=== PATIENT | female | born 1950 | race Caucasian/White ===

== ENCOUNTER 2018-07-31 13:49 | Inpatient (IN) | payer OTHER ==
[~2018-07-31] VITALS: Ht 172.7 cm; Wt 93.1 kg
[~2018-07-31 13:49] MED LIST: BUPROPION HCL100 MG PO; BUPROPION HCL75 MG PO; CALCIUM600 MG PO; CEFDINIR300 MG PO; CLONAZEPAM0.5 MG PO; CLONAZEPAM1 MG PO; HYDROCODON-ACE1 EA12 PO; LAMOTRIGINE100 MG PO; LAMOTRIGINE200 MG PO; LEVOTHYROXINE50 MCG PO; OMEPRAZOLE20 M1 PO; OSTERA TABLET1 EACH; PREDNISONE20 MG PO; RISPERIDONE1 MG PO; VENLAFAXINE PO; VIT D PO; [UNRECOGNIZED DRUG - OTHER] PO; vit d3
[2018-07-31] MEDS ORDERED: SODIUM CHLORIDE 0.9% 1000ML 1,000 ML IV STA (14:28)
[2018-07-31] MEDS ORDERED: CEFTRIAXONE SOD 1 GM VIAL IV SCH ×2 (14:30→16:15)
[2018-07-31] MEDS ORDERED: CEFTRIAXONE SOD 1 GM/NS 50 ML 50 ML IV SCH ×2 (15:00→17:00)
[2018-07-31 15:15] LABS: BASOPHILS # (AUTO) 0.1 (0.0-0.1); BASOPHILS % 0.5 % (0.0-1.0); EOSINOPHILS # (AUTO) 0.2 (0.0-0.4); EOSINOPHILS % 1.8 % (0.0-6.0); HEMATOCRIT 38.7 % (34.2-44.1); HEMOGLOBIN 12.2 g/dL (12.0-16.0); LYMPHOCYTES # (AUTO) 2.1 (1.0-3.2); LYMPHOCYTES % 16.1 % (18.0-39.1); MEAN CORPUSCULAR HEMOGLOBIN 30.7 pg (28-32); MEAN CORPUSCULAR HGB CONC 31.5 g/dL (31-35); MEAN CORPUSCULAR VOLUME 97.5 fL (81-99); MONOCYTES # (AUTO) 0.8 (0.2-0.8); MONOCYTES % 5.9 % (4.4-11.3); NEUTROPHILS # (AUTO) 9.6 (2.1-6.9); PLATELET COUNT 312 x10e3/uL (140-360); RED BLOOD COUNT 3.97 x10e6/uL (3.6-5.1); RED CELL DISTRIBUTION WIDTH 12.5 % (11.7-14.4)
[2018-07-31 15:26] LABS: INR 0.85; PROTHROMBIN TIME 12.4 seconds (11.9-14.5)
[2018-07-31 15:27] LABS: PARTIAL THROMBOPLASTIN TIME 31.5 seconds (23.8-35.5)
[2018-07-31] MEDS ORDERED: AZITHROMYCIN 500MG/NS 250 ML 250 ML IV ONE (15:30)
[2018-07-31 15:36] LABS: ALANINE AMINOTRANSFERASE 12 IU/L (0-55); ALBUMIN 3.8 g/dL (3.5-5.0); ALKALINE PHOSPHATASE 78 IU/L (40-150); BLOOD UREA NITROGEN 10 mg/dL (7-26); BUN/CREATININE RATIO 13 (6-25); CALCIUM 9.5 mg/dL (8.4-10.2); CARBON DIOXIDE 26 mmol/L (22-29); CHLORIDE 99 mmol/L (98-107); CREATINE KINASE 27 IU/L (29-168); CREATININE, SERUM 0.76 mg/dL (0.57-1.11); EST GLOMERULAR FILTRATION RATE > 60 ML/MIN (60-); GLUCOSE 93 mg/dL (74-118); SODIUM 138 mmol/L (136-145)
[2018-07-31] MEDS: SODIUM CHLORIDE 0.9% 1000ML 1,000 ML IV SCH ×2 (16:01→22:52)
[2018-07-31] MEDS ORDERED: AZITHROMYCIN 500MG/SOD CHL 0.9% 250ML BAG IV SCH (16:15)
[2018-07-31] MEDS ORDERED: ALBUTEROL/IPRATROPIUM 3 ML NEB ONE (16:23)
--- NOTE | 2018-07-31 16:27 | Diagnostic Imaging Report ---
EXAMINATION: CHEST 2 VIEWS INDICATION: ^pneumonia ^[id number] ^1505 COMPARISON: None FINDINGS: PA and lateral views TUBES and LINES: None. LUNGS: Lungs are well inflated. Right lower lung field hazy opacification with mild silhouetting of the right hemidiaphragm. PLEURA: No pleural effusion or pneumothorax. HEART AND MEDIASTINUM: The cardiomediastinal silhouette is unremarkable. BONES AND SOFT TISSUES: No acute osseous lesion. Soft tissues are unremarkable. UPPER ABDOMEN: No free air under the diaphragm. IMPRESSION: Right lower lung field hazy opacification with mild silhouetting of the right hemidiaphragm, concerning for developing pneumonia in the appropriate clinical setting. Signed by: Dr. Russ Khan MD on 07/31/2018 4:24 PM
--- OUTSIDE RECORDS SUMMARY | 2018-07-31 16:29 | XMS REPORT ---
Author Author [facility] Address Unknown Phone Unavailable Care Team Providers Care Professional Engineer Name Role Phone GEOFF AC Unavailable Unavailable Problems This patient has no known problems. Allergies, Adverse Reactions, Alerts This patient has no known allergies or adverse reactions. Medications This patient has no known medications. Results Test Description Test Time Test Comments Text Results Atomic Results Result Comments CHEST 2 VIEWS 2018-07-31 16:22:00 [place] [address] Patient Name: MILIND CASTILLO MR #: [id number] : 1950 Age/Sex: 68/F Req #: [id number] [facility] Physician: GEOFF AC MD Ordered by: JODIE AZAR MD Report #: [id number] Location: [facility] Room/Bed: [place] [address] Procedure: [id number] DX/CHEST 2 VIEWS Exam Date: 07/31/18 Exam Time: 1505 REPORT STATUS: Signed EXAMINATION: CHEST 2 VIEWS INDICATION: pneumonia [id number] COMPARISON: None FINDINGS: PA and lateral views TUBES and LINES: None. LUNGS: Lungs are well inflated. Right lower lung field hazy opacification with mild silhouetting of the right hemidiaphragm. PLEURA: No pleural effusion or pneumothorax. HEART AND MEDIASTINUM: The cardiomediastinal silhouette is unremarkable. BONES AND SOFT TISSUES: No acute osseous lesion. Soft tissues are unremarkable. UPPER ABDOMEN: No free air under the diaphragm. IMPRESSION: Right lower lung field hazy opacification with mild silhouetting of the right hemidiaphragm, concerning for developing pneumonia in the appropriate clinical setting. Signed by: Dr. Russ Burrell MD on 07/31/2018 4:24 PM Dictated By: RUSS BURRELL MD 23 Transcribed By: JENNIFER on 07/31/181623 COPY TO: JODIE AZAR MD
[2018-07-31] MEDS ORDERED: CYMBALTA30 MG PO (17:00)
[2018-07-31] MEDS ORDERED: NORCO 7.5-3251 EACH PO (17:00)
[2018-07-31] MEDS ORDERED: RISPERDAL1 MG PO (17:00)
[2018-07-31] MEDS ORDERED: ALBUTEROL0.63 MG/3 IH (17:00)
[2018-07-31] MEDS ORDERED: OMEPRAZOLE40 MG PO (17:00)
[2018-07-31] MEDS ORDERED: METHYLPHENIDATE5 MG PO (17:00)
[2018-07-31] MEDS ORDERED: GABAPENTIN300 MG PO (17:00)
[2018-07-31] MEDS ORDERED: QUETIAPINE FUMA25 MG PEG (17:00)
[2018-07-31] MEDS ORDERED: ALBUTEROL/IPRATROPIUM 3 ML NEB NEB ONE (17:00)
[2018-07-31] MEDS ORDERED: SERTRALINE HCL50 MG PO (17:00)
[2018-07-31] MEDS ORDERED: METFORMIN HCL500 MG PO (17:00)
[2018-07-31 17:10] VITALS: BP 113/57
[2018-07-31 17:20] VITALS: BP 113/57
--- NOTE | 2018-07-31 17:20 | NUR ---
INTRODUCED MYSELF TO PT AT THIS TIME. PT IS AA0X3. VITAL SIGNS TAKEN AND ARE WITHIN N/L. PT FAMILY IS AT BEDSIDE. PT IS ON 2.5 L NC AT THIS TIME. IV TO THE RIGHT AC 20G WITH NS AT 125CC.HR. INSTRUCTED FAMILY AND PT THAT NURSE LÓPEZ WOULD IN SHORTLY . PT VERBALIZED UNDERSTANDING . SIDE RAILSX2, BED WHEELS LOCKED, CALL LIGHT IS WITHIN EASY REACH, INSTRUCTED TO CALL FOR ASSISTANCE IF NEEDED
[2018-07-31] MEDS ORDERED: COMBIVENT RESPIM4 GM IH (18:06)
[2018-07-31] MEDS ORDERED: MIRALAX17 GM PO (18:06)
--- NOTE | 2018-07-31 18:45 | NUR ---
1530 Dose of zithromax not given prior to patient arriving to unit from the ER. Will administer the 1700 dose only.
[2018-07-31] MEDS: AZITHROMYCIN 500MG/NS 250 ML 250 ML IV SCH (18:50)
[2018-07-31] MEDS: NICOTINE 21 MG/EA PATCH TOP SCH (18:50)
[2018-07-31] MEDS ORDERED: INFLUENZA VIRUS VAC SPLIT INJ 0.5 ML SYR IM ONE (19:00)
[2018-07-31] MEDS: ALBUTEROL SULF 0.083% NEB SOLN 3 ML NEB NEB SCH (19:16)
[2018-07-31] MEDS: IPRATROPIUM BROMIDE 0.02% 2.5 ML NEB NEB SCH (19:16)
[2018-07-31 20:00] VITALS: BP 113/59
[2018-07-31] MEDS ORDERED: IPRATROPIUM/ALBUTEROL SULFATE 4 GM INH INH PRN (21:45)
[2018-07-31] MEDS ORDERED: HYDROCODONE/APAP 7.5MG-325MG 1 EA TAB PO SCH (22:00)
[2018-07-31] MEDS ORDERED: FAMOTIDINE 20 MG/2 ML VIAL IV SCH (22:00)
[2018-07-31] MEDS: METHYLPREDNISOLONE SOD SUCC 40 MG/ML VIAL IV SCH (22:59)
[2018-07-31] MEDS: RISPERIDONE 1 MG TAB PO SCH (22:59)
[2018-07-31] MEDS: POLYETHYLENE GLYCOL 3350 17 GM PACK PO SCH (22:59)
[2018-07-31] MEDS: FAMOTIDINE IV SCH (22:59)
[2018-07-31] MEDS: GABAPENTIN 300 MG CAP PO SCH (22:59)
[2018-07-31] MEDS: SODIUM CHLORIDE 0.9% IV SCH (22:59)
[2018-07-31] MEDS: LAMOTRIGINE 100 MG TAB PO SCH (22:59)
[2018-07-31] MEDS: DULOXETINE HCL 30 MG DELAYED RELEASE PO SCH (22:59)
[2018-08-01] VITALS (7 sets, daily range): BP systolic 109–122; BP diastolic 53–59
[2018-08-01] MEDS: ALBUTEROL SULF 0.083% NEB SOLN 3 ML NEB NEB SCH ×6 (00:05→19:27)
[2018-08-01] MEDS: IPRATROPIUM BROMIDE 0.02% 2.5 ML NEB NEB SCH ×4 (00:05→19:27)
[2018-08-01] MEDS ORDERED: HYDROCODONE/APAP 7.5MG-325MG 1 EA TAB PO PRN (01:00)
--- NOTE | 2018-08-01 06:28 | Diagnostic Imaging Report ---
CHEST SINGLE (PORTABLE), 08/01/2018 5:00 AM Technique: CHEST SINGLE (PORTABLE) Comparison: 07/31/2018 Clinical history: Pneumonia Findings: See Impression Impression: 1. Stable cardiomediastinal silhouette 2. Right upper and lower lobe opacity which may reflect multifocal pneumonia. Possible underlying bronchiectasis/chronic lung change. Recommend follow-up upright PA and lateral or CT to better assess after treatment. Signed by: Dr Lorin Bailey MD on 08/01/2018 6:24 AM
[2018-08-01] MEDS ORDERED: METHYLPHENIDATE HCL 10 MG TAB PO SCH (06:30)
[2018-08-01 06:33] LABS: BASOPHILS % 0.5 % (0.0-1.0); EOSINOPHILS % 0.1 % (0.0-6.0); HEMATOCRIT 36.1 % (34.2-44.1); HEMOGLOBIN 11.4 g/dL (12.0-16.0); LYMPHOCYTES % 13.7 % (18.0-39.1); MEAN CORPUSCULAR HEMOGLOBIN 31.1 pg (28-32); MEAN CORPUSCULAR HGB CONC 31.6 g/dL (31-35); MEAN CORPUSCULAR VOLUME 98.6 fL (81-99); MONOCYTES # (AUTO) 0.2 (0.2-0.8); MONOCYTES % 2.5 % (4.4-11.3); NEUTROPHILS % 81.6 % (38.7-80.0); PLATELET COUNT 322 x10e3/uL (140-360); RED BLOOD COUNT 3.66 x10e6/uL (3.6-5.1); RED CELL DISTRIBUTION WIDTH 12.5 % (11.7-14.4)
[2018-08-01] MEDS: METHYLPREDNISOLONE SOD SUCC 40 MG/ML VIAL IV SCH ×3 (06:51→22:48)
[2018-08-01] MEDS: LEVOTHYROXINE SODIUM 75 MCG TAB PO SCH (06:51)
[2018-08-01 06:55] LABS: ANION GAP 15.3 mmol/L (8-16); BLOOD UREA NITROGEN 10 mg/dL (7-26); BUN/CREATININE RATIO 14 (6-25); CALCIUM 8.9 mg/dL (8.4-10.2); CARBON DIOXIDE 25 mmol/L (22-29); CHLORIDE 104 mmol/L (98-107); CREATININE, SERUM 0.73 mg/dL (0.57-1.11); EST GLOMERULAR FILTRATION RATE > 60 ML/MIN (60-); GLUCOSE 147 mg/dL (74-118); POTASSIUM 4.3 mmol/L (3.5-5.1); SODIUM 140 mmol/L (136-145)
[2018-08-01] MEDS: SODIUM CHLORIDE 0.9% 1000ML 1,000 ML IV SCH (07:33)
--- NOTE | 2018-08-01 07:35 | NUR ---
RECEIVED PATIENT RESTING IN BED. NO ACUTE DISTRESS NOTED. CALL LIGHT WITHIN REACH. BED IN THE LOWEST POSITION.
[2018-08-01] MEDS: PANTOPRAZOLE SOD 40 MG TABEC PO SCH (08:51)
[2018-08-01] MEDS: LAMOTRIGINE 100 MG TAB PO SCH ×2 (08:51→22:47)
[2018-08-01] MEDS: GABAPENTIN 300 MG CAP PO SCH ×3 (08:51→22:48)
[2018-08-01] MEDS: RISPERIDONE 0.5 MG TAB PO SCH (08:51)
[2018-08-01] MEDS: BUPROPION HCL 150 MG TABCR PO SCH (08:51)
[2018-08-01] MEDS: METFORMIN HCL 500 MG TAB PO SCH ×2 (08:51→17:01)
[2018-08-01] MEDS: POLYETHYLENE GLYCOL 3350 17 GM PACK PO SCH (08:51)
[2018-08-01] MEDS: METHYLPHENIDATE HCL 10 MG TAB PO SCH ×2 (09:22→22:48)
[2018-08-01] MEDS ORDERED: FAMOTIDINE 20 MG/2 ML VIAL IV ONE (09:30)
[2018-08-01] MEDS: SODIUM CHLORIDE 0.9% IV SCH (09:38)
[2018-08-01] MEDS: FAMOTIDINE IV SCH (09:38)
--- NOTE | 2018-08-01 11:33 | History and Physical ---
PRIMARY CARE PROVIDER: Dr. Bam Blanco CHIEF COMPLAINT: Shortness of breath, fever and pneumonia. HISTORY OF PRESENT ILLNESS: Patient is a 68-year-old female with chronic obstructive pulmonary disease who came in with increasing shortness of breath. Chest x-ray showed multilobar pneumonia. The patient was taking oral antibiotic as outpatient for 5 days. She failed treatment. The patient is otherwise stable now. PAST MEDICAL HISTORY 1. Diabetes, type 2. 2. Chronic obstructive pulmonary disease. 3. Hypothyroidism. 4. Bipolar disorder. 5. Chronic pain in neck, lower back and multiple joint pain areas. 6. Reflux. SOCIAL HISTORY: Patient was an ex-smoker. She does not use alcohol or any drugs. HOME MEDICATIONS: List reviewed. ALLERGIES: SULFA. REVIEW OF SYSTEMS: As mentioned above. PHYSICAL EXAMINATION VITAL SIGNS: Temperature 97, blood pressure 115/53, pulse rate 80, respirations 18. GENERAL: The patient is not in acute distress. HEENT: Normocephalic, atraumatic, anicteric. NECK: Supple grossly. PULMONARY: Diminished breath sounds bilaterally with coarses and rhonchi. CARDIOVASCULAR: S1 and S2. Regular rate and rhythm. ABDOMEN: Soft. Positive bowel sounds. Grossly nontender and nondistended. EXTREMITIES: No gross cyanosis or edema. NEUROLOGIC: No gross focal deficit. LABORATORY: Sodium is 140, potassium 4.3, chloride 104, bicarb 25, BUN 10, creatinine 0.7. Glucose 147. WBC 7.3, hemoglobin 11.4, hematocrit 36.1, platelets 322. Chest x-ray showed multilobar pneumonia. IMPRESSION 1. Multilobar pneumonia. 2. Acute chronic obstructive pulmonary disease. 3. Baseline chronic opioid dependency for pain control. PLAN: Continue with home medication. Azithromycin and Rocephin. Nebulizer treatment. Tapering steroids. Will monitor the patient closely. Check CT of the chest without contrast. Job#: [id number] cc:BAM BLANCO MD
--- NOTE | 2018-08-01 11:54 | NUR ---
PATIENT NOTIFIED NURSE THAT SHE HAS TROUBLE SLEEPING AND USUALLY TAKES DIPHENHYDRAMINE. CALLED DR. AC TO NOTIFY, NO ANSWER LVM
--- NOTE | 2018-08-01 12:56 | Diagnostic Imaging Report ---
EXAM: CT Chest WITH contrast DATE/TIME: 08/01/2018 10:54 AM INDICATION: Pneumonia COMPARISON: Dictation from CT Chest with contrast 05/28/2014, no images are available for review. TECHNIQUE: Chest was scanned utilizing a multidetector helical scanner from the lung apex through the level of the adrenal glands without administration of IV contrast. Coronal and sagittal reformations were obtained. Routine protocol was performed. IV CONTRAST: 100 mL of Omnipaque 300 RADIATION DOSE: Total DLP: 537.6 mGy*cm Estimated effective dose: (DLP x 0.014 x size factor) mSv COMPLICATIONS: None FINDINGS: LINES/ TUBES: None. LUNGS AND AIRWAYS: Mild upper lung predominant paraseptal emphysematous changes. Multifocal patchy groundglass opacities are present throughout the right lung. Some of the opacities have more nodular appearance, for example in the right upper lobe on series 124, image 39 measuring up to 8 mm and in the right lower lobe measuring 6 mm on image 68. Patchy consolidation is present in the right lower lobe on image 79. Mild right-sided bronchiectasis with distal mucoid impaction in the right lower lobe. Scattered left-sided pulmonary nodules including calcified pulmonary nodules in the left upper lobe measuring up to 4 mm on image 20, a 3 mm solid nodule in the left upper lobe on image 56, and scattered groundglass nodular opacities measuring up to 3 mm in the left upper lobe on image 52. Mild patchy ground glass opacities in the left lower lobe, for example on image 85. Solid pulmonary nodules measuring up to 4 mm in the left lower lobe, for example on image 63. PLEURA: The pleural spaces are clear. HEART AND MEDIASTINUM: The thyroid gland is normal. No mediastinal, hilar or axillary lymphadenopathy. The heart is normal in size.. There is no pericardial effusion. Scattered atherosclerotic calcifications in the thoracic aorta and branch vessels. Scattered coronary atherosclerotic calcifications. UPPER ABDOMEN: Limited non-contrast views of the upper abdomen show no abnormality within the visualized liver, pancreas, adrenal glands, or kidneys. Splenic calcified granulomas. BONES: No acute bony findings. Mild degenerative changes of the thoracic spine. IMPRESSION: Multifocal groundglass, nodular, and consolidative opacities throughout the right lung, consistent with history of pneumonia. Given the presence of nodular opacities in the right lung, follow-up chest CT is recommended in 6-8 weeks to assess for resolution. Additional ground glass opacities in the left lung which could be infectious or inflammatory. Additional left sided pulmonary nodules measuring up to 4 mm. These can be further assessed on follow-up chest CT. Signed by: Dr. Leanne Yeung MD on 08/01/2018 12:53 PM
[2018-08-01] MEDS: HYDROCODONE/APAP 7.5MG-325MG 1 EA TAB PO SCH ×3 (13:55→22:48)
[2018-08-01] MEDS: NICOTINE 21 MG/EA PATCH TOP SCH (17:01)
[2018-08-01] MEDS: AZITHROMYCIN 500MG/NS 250 ML 250 ML IV SCH (17:01)
[2018-08-01] MEDS: FAMOTIDINE 20 MG TAB PO SCH (17:01)
--- NOTE | 2018-08-01 18:28 | NUR ---
CALLED DR. AC AGAIN TO INFORM HIM THAT PATIENT IS REQUESTING SOMETHING FOR SLEEP, PER DR. AC "NO, NOT WHILE SHE'S SICK".
--- NOTE | 2018-08-01 19:27 | NUR ---
REPORT GIVEN TO ONCOMING NURSE. PATIENT IS RESTING IN BED. NO ACUTE DISTRESS NOTED. CALL LIGHT WITHIN REACH. BED IN THE LOWEST POSITION.
[2018-08-01] MEDS: DULOXETINE HCL 30 MG DELAYED RELEASE PO SCH (22:47)
[2018-08-01] MEDS: CEFTRIAXONE SOD 1 GM/NS 50 ML 50 ML IV SCH (22:47)
[2018-08-01] MEDS: RISPERIDONE 1 MG TAB PO SCH (22:48)
[2018-08-01] MEDS: SENNOSIDES 8.6 MG TAB PO SCH (22:48)
[2018-08-02] VITALS (8 sets, daily range): BP systolic 109–131; BP diastolic 52–63
[2018-08-02] MEDS: ALBUTEROL SULF 0.083% NEB SOLN 3 ML NEB NEB SCH ×6 (00:02→19:35)
[2018-08-02] MEDS: IPRATROPIUM BROMIDE 0.02% 2.5 ML NEB NEB SCH ×4 (00:02→19:35)
[2018-08-02] MEDS: METHYLPREDNISOLONE SOD SUCC 40 MG/ML VIAL IV SCH ×3 (05:28→22:00)
[2018-08-02] MEDS: LEVOTHYROXINE SODIUM 75 MCG TAB PO SCH (05:28)
--- NOTE | 2018-08-02 07:27 | NUR ---
RECEIVED PATIENT RESTING IN BED. NO ACUTE DISTRESS NOTED. CALL LIGHT WITHIN REACH. BED IN THE LOWEST POSITION.
[2018-08-02] MEDS: FAMOTIDINE 20 MG TAB PO SCH ×2 (08:49→15:22)
[2018-08-02] MEDS: POLYETHYLENE GLYCOL 3350 17 GM PACK PO SCH (08:49)
[2018-08-02] MEDS: METFORMIN HCL 500 MG TAB PO SCH ×2 (08:49→16:32)
[2018-08-02] MEDS: LAMOTRIGINE 100 MG TAB PO SCH ×2 (08:49→20:52)
[2018-08-02] MEDS: PANTOPRAZOLE SOD 40 MG TABEC PO SCH (08:49)
[2018-08-02] MEDS: GABAPENTIN 300 MG CAP PO SCH ×3 (08:49→20:53)
[2018-08-02] MEDS: RISPERIDONE 0.5 MG TAB PO SCH (08:50)
[2018-08-02] MEDS: BUPROPION HCL 150 MG TABCR PO SCH (08:50)
[2018-08-02] MEDS: METHYLPHENIDATE HCL 10 MG TAB PO SCH ×2 (08:50→20:54)
[2018-08-02] MEDS: HYDROCODONE/APAP 7.5MG-325MG 1 EA TAB PO SCH ×5 (08:51→22:23)
[2018-08-02] MEDS: CEFTRIAXONE SOD 1 GM/NS 50 ML 50 ML IV SCH ×2 (08:54→20:52)
[2018-08-02] MEDS: AZITHROMYCIN 500MG/NS 250 ML 250 ML IV SCH (16:32)
[2018-08-02] MEDS: NICOTINE 21 MG/EA PATCH TOP SCH (16:32)
--- NOTE | 2018-08-02 19:16 | NUR ---
REPORT GIVEN TO ONCOMING NURSE. PATIENT IS IN STABLE CONDITION, NO ACUTE DISTRESS NOTED. CALL LIGHT WITHIN REACH. BED IN THE LOWEST POSITION.
--- NOTE | 2018-08-02 20:05 | NUR ---
RECEIVED PT IN BED AOX3 .RESPIRATIONS ARE EVEN AND UNLABORED .DENIES PAIN .CALL LIGHT WITH IN REACH .CONTINUE TO MONITOR
[2018-08-02] MEDS: DULOXETINE HCL 30 MG DELAYED RELEASE PO SCH (20:52)
[2018-08-02] MEDS: RISPERIDONE 1 MG TAB PO SCH (20:53)
[2018-08-02] MEDS: SENNOSIDES 8.6 MG TAB PO SCH (20:54)
[2018-08-03] MEDS: IPRATROPIUM BROMIDE 0.02% 2.5 ML NEB NEB SCH ×4 (00:02→20:00)
[2018-08-03] MEDS: ALBUTEROL SULF 0.083% NEB SOLN 3 ML NEB NEB SCH ×6 (00:02→20:00)
[2018-08-03 00:15] VITALS: BP 94/51
[2018-08-03] MEDS: METHYLPREDNISOLONE SOD SUCC 40 MG/ML VIAL IV SCH ×3 (05:17→22:43)
[2018-08-03] MEDS: LEVOTHYROXINE SODIUM 75 MCG TAB PO SCH (05:17)
[2018-08-03 05:20] VITALS: BP 126/61
[2018-08-03 05:40] LABS: BASOPHILS % 0.4 % (0.0-1.0); HEMATOCRIT 35.2 % (34.2-44.1); HEMOGLOBIN 11.2 g/dL (12.0-16.0); LYMPHOCYTES # (AUTO) 1.5 (1.0-3.2); LYMPHOCYTES % 18.4 % (18.0-39.1); MEAN CORPUSCULAR HGB CONC 31.8 g/dL (31-35); MEAN CORPUSCULAR VOLUME 97.5 fL (81-99); MONOCYTES # (AUTO) 0.5 (0.2-0.8); MONOCYTES % 5.5 % (4.4-11.3); NEUTROPHILS # (AUTO) 6.2 (2.1-6.9); NEUTROPHILS % 73.8 % (38.7-80.0); PLATELET COUNT 355 x10e3/uL (140-360); RED BLOOD COUNT 3.61 x10e6/uL (3.6-5.1); RED CELL DISTRIBUTION WIDTH 12.4 % (11.7-14.4)
[2018-08-03 06:00] LABS: ANION GAP 16.1 mmol/L (8-16); BLOOD UREA NITROGEN 11 mg/dL (7-26); BUN/CREATININE RATIO 15 (6-25); CALCIUM 9.3 mg/dL (8.4-10.2); CARBON DIOXIDE 27 mmol/L (22-29); CHLORIDE 100 mmol/L (98-107); CREATININE, SERUM 0.71 mg/dL (0.57-1.11); EST GLOMERULAR FILTRATION RATE > 60 ML/MIN (60-); GLUCOSE 148 mg/dL (74-118); POTASSIUM 4.1 mmol/L (3.5-5.1); SODIUM 139 mmol/L (136-145)
--- NOTE | 2018-08-03 07:11 | NUR ---
NO ACUTE DISTRESS NOTED .REPORT GIVEN TO THE ONCOMING NURSE
[2018-08-03] MEDS: FAMOTIDINE 20 MG TAB PO SCH ×2 (08:23→17:00)
[2018-08-03] MEDS: METFORMIN HCL 500 MG TAB PO SCH ×2 (08:23→17:00)
[2018-08-03] MEDS: GABAPENTIN 300 MG CAP PO SCH ×3 (08:23→20:55)
[2018-08-03] MEDS: METHYLPHENIDATE HCL 10 MG TAB PO SCH ×2 (08:24→20:56)
[2018-08-03] MEDS: PANTOPRAZOLE SOD 40 MG TABEC PO SCH (08:24)
[2018-08-03] MEDS: RISPERIDONE 0.5 MG TAB PO SCH (08:24)
[2018-08-03] MEDS: HYDROCODONE/APAP 7.5MG-325MG 1 EA TAB PO SCH ×4 (08:24→20:56)
[2018-08-03] MEDS: BUPROPION HCL 150 MG TABCR PO SCH (08:24)
[2018-08-03 08:25] VITALS: BP 119/59
[2018-08-03] MEDS: POLYETHYLENE GLYCOL 3350 17 GM PACK PO SCH (09:00)
[2018-08-03] MEDS: LAMOTRIGINE 100 MG TAB PO SCH ×2 (09:00→20:55)
[2018-08-03] MEDS ORDERED: MAGNESIUM HYDROXIDE 30 ML UDC PO NR (09:30)
[2018-08-03] MEDS: SENNOSIDES 8.6 MG TAB PO SCH ×2 (09:30→17:00)
[2018-08-03] MEDS ORDERED: MAGNESIUM HYDROXIDE 30 ML UDC PO PRN (09:30)
[2018-08-03] MEDS ORDERED: INFLUENZA VIRUS VAC SPLIT INJ 0.5 ML SYR IM NR (10:30)
[2018-08-03] MEDS: LEVOFLOXACIN 500 MG TAB PO SCH (10:30)
[2018-08-03] MEDS: CEFTRIAXONE SOD 1 GM/NS 50 ML 50 ML IV SCH ×2 (10:46→21:00)
[2018-08-03 12:50] VITALS: BP 125/60
[2018-08-03 16:24] VITALS: BP 124/60
[2018-08-03] MEDS: NICOTINE 21 MG/EA PATCH TOP SCH (17:00)
--- NOTE | 2018-08-03 17:46 | NUR ---
PT UP IN BED NO DISTRESS NOTED DENIES PAIN.
--- NOTE | 2018-08-03 18:30 | NUR ---
Nutrition Screen Note RD Recommendation for Physician: -Continue ADA diet as ordered Plan of Care: RD following, monitoring for tolerance and adequacy Nutrition reason for involvement: Nutrition Risk Trigger MST Primary Diagnose(s): 1. Multilobar pneumonia. 2. Acute chronic obstructive pulmonary disease. 3. Baseline chronic opioid dependency for pain control. PMH: COPD, DM, hypothyroidism, bipolar, chronic pain, reflux Ht: 68in Wt: 206.37lb BMI: 31.4kg/m2 IBW: 140lb RD Assessment: (08/03) Chart reviewed. Labs and meds reviewed. 68yo F, who is admitted for SOB. Visited pt in the room. Pt reports good appetite with ~50-70% recorded meal intake. Pt complains of constipation for 2 weeks and Miralax has been ordered. No other GI complains noted. Pt also has ill-fitting denture; RD offered texture modification but pt refused. No swallowing difficulty noted. Pt denies any recent weight loss with reported UBW ~200lbs. Will continue to monitor and follow. Current Diet: ADA diet Malnutrition Evaluation (08/03/18) The patient does not meet criteria for a specified degree of malnutrition at this time. Will re-evaluate at follow-up as appropriate. Diet Education Needs Assessment: Diet education not indicated. Nutrition Care Level: low Signed: Yanet Patrick, MS, RD, LD
[2018-08-03 20:00] VITALS: BP_SYST 107; BP_SYST 168; BP_DIAS 54; BP_DIAS 78
--- NOTE | 2018-08-03 20:31 | NUR ---
RECEIVED PT IN BED AOX3 .NO ACUTE DISTRESS NOTED .CALL LIGHT WITH IN REACH .CONTINUE TO MONITOR
[2018-08-03] MEDS: DULOXETINE HCL 30 MG DELAYED RELEASE PO SCH (20:55)
[2018-08-03] MEDS: RISPERIDONE 1 MG TAB PO SCH (20:56)
[2018-08-04] VITALS: BP 105/55
[2018-08-04] MEDS: ALBUTEROL SULF 0.083% NEB SOLN 3 ML NEB NEB SCH ×4 (01:00→10:35)
[2018-08-04] MEDS: IPRATROPIUM BROMIDE 0.02% 2.5 ML NEB NEB SCH ×2 (01:00→06:35)
[2018-08-04 01:54] VITALS: BP 105/55
[2018-08-04 04:00] VITALS: BP 116/61
[2018-08-04] MEDS: METHYLPREDNISOLONE SOD SUCC 40 MG/ML VIAL IV SCH (06:12)
[2018-08-04] MEDS: LEVOTHYROXINE SODIUM 75 MCG TAB PO SCH (06:12)
--- NOTE | 2018-08-04 07:10 | NUR ---
RCD PT AT BED PT IS ALERT AND ORIENTED ASSESSMENT DONE PT RESTING ON BED IV PATENT BED LOW AND LOCKED FAMILY AT BED SIDE CALL LIGHT IN REACH
[2018-08-04] MEDS: FAMOTIDINE 20 MG TAB PO SCH (07:30)
[2018-08-04 08:00] VITALS: BP_SYST 116; BP_SYST 124; BP_DIAS 60; BP_DIAS 61
[2018-08-04] MEDS: METFORMIN HCL 500 MG TAB PO SCH (08:00)
[2018-08-04] MEDS: GABAPENTIN 300 MG CAP PO SCH (08:51)
[2018-08-04] MEDS: LAMOTRIGINE 100 MG TAB PO SCH (08:51)
[2018-08-04] MEDS: CEFTRIAXONE SOD 1 GM/NS 50 ML 50 ML IV SCH (08:51)
[2018-08-04] MEDS: POLYETHYLENE GLYCOL 3350 17 GM PACK PO SCH (08:51)
[2018-08-04] MEDS: METHYLPHENIDATE HCL 10 MG TAB PO SCH (08:52)
[2018-08-04] MEDS: LEVOFLOXACIN 500 MG TAB PO SCH (08:52)
[2018-08-04] MEDS: SENNOSIDES 8.6 MG TAB PO SCH (08:52)
[2018-08-04] MEDS: RISPERIDONE 0.5 MG TAB PO SCH (08:52)
[2018-08-04] MEDS: PANTOPRAZOLE SOD 40 MG TABEC PO SCH (08:52)
[2018-08-04] MEDS: HYDROCODONE/APAP 7.5MG-325MG 1 EA TAB PO SCH (08:52)
[2018-08-04] MEDS: BUPROPION HCL 150 MG TABCR PO SCH (08:52)
--- NOTE | 2018-08-04 09:31 | Discharge Summary ---
PCP: Dr. Bam Goins FINAL DIAGNOSES 1. Right lung pneumonia. 2. Rswli-cm-txgjjga obstructive pulmonary disease. 3. Multiple baseline medical problems. SUMMARY: A 68-year-old female failed outpatient treatment. The patient came in with increasing shortness of breath and fever. She does have multilobar pneumonia. The patient is stable. CT scan showed multiple focal ground-glass nodular and consolidated opacities throughout the right lung consistent with pneumonia. Patient also had exacerbation of COPD. She is a smoker. Patient is stable now. She has been getting Rocephin and azithromycin and subsequently Levaquin. She is comfortable. At this time, she is stable. She will go home today with Levaquin 500 mg daily for 3 days. Tessalon Perles p.r.n. for cough and ProAir HFA 2 puffs q.6 h. as needed for shortness of breath. Patient to follow up with Dr. Goins next week. Job#: [id number] [place]
[2018-08-04] MEDS ORDERED: LEVAQUIN500 MG PO (10:00)
[2018-08-04] MEDS ORDERED: TESSALON PERLE100 MG PO (10:01)
--- NOTE | 2018-08-04 11:30 | NUR ---
PT WENT HOME IN SAFE CONDITION WITH HER DAUGHTER
== END 2018-08-04 11:30 | disposition home or self-care (01) | DRG 190 ==
LOC: ER 13:49 → ERHOLD 16:01 → MED/SURG3 17:20
PROVIDERS: ADMIT Internal Medicine; ATTEND Internal Medicine
DX: J44.0 Chronic obstructive pulmonary disease with (acute) lower respiratory infection (principal); J18.9 Pneumonia, unspecified organism; F11.20 Opioid dependence, uncomplicated; J44.1 Chronic obstructive pulmonary disease with (acute) exacerbation; E11.9 Type 2 diabetes mellitus without complications; E03.9 Hypothyroidism, unspecified; F31.9 Bipolar disorder, unspecified; F17.210 Nicotine dependence, cigarettes, uncomplicated; R09.02 Hypoxemia; Z88.2 Allergy status to sulfonamides; K21.9 Gastro-esophageal reflux disease without esophagitis; Z23 Encounter for immunization; Z79.84 Long term (current) use of oral hypoglycemic drugs
CPT/HCPCS: 36415; 71045; 71046; 71250; 80048; 80053; 82550; 82553; 82948; 84484; 85025; 85610; 85730; 87040; 93005; 94640; 99284; J0456; J0696; J2920; J7030

== ENCOUNTER 2018-09-06 14:08 | Inpatient (IN) | payer MEDICARE, OTHER ==
[~2018-09-06] VITALS: Ht 325.1 cm; Wt 101.3 kg
[~2018-09-06 14:08] MED LIST changes: +ALBUTEROL0.63 MG/3 IH; +COMBIVENT RESPIM4 GM IH; +CYMBALTA30 MG PO; +GABAPENTIN300 MG PO; +LEVAQUIN500 MG PO; +METFORMIN HCL500 MG PO; +METHYLPHENIDATE5 MG PO; +MIRALAX17 GM PO; +NORCO 7.5-3251 EACH PO; +OMEPRAZOLE40 MG PO; +QUETIAPINE FUMA25 MG PEG; +RISPERDAL1 MG PO; +SERTRALINE HCL50 MG PO; +TESSALON PERLE100 MG PO
--- OUTSIDE RECORDS SUMMARY | 2018-09-06 14:12 | XMS REPORT | Continuity of Care Document ---
Author Author [facility] Address Unknown Phone Unavailable Problems Problem Status Onset Date Classification Date Reported Comments Source COPD exacerbation Active 07/26/2015 Problem 08/04/2018 [facility] Fall against object Active 07/26/2015 Problem 08/04/2018 [facility] Hypoxia Active 07/26/2015 Problem 08/04/2018 [facility] Laceration of scalp Active 07/26/2015 Problem 08/04/2018 [facility] Scalp hematoma Active 07/26/2015 Problem 08/04/2018 [facility] Weakness Active 07/26/2015 Problem 08/04/2018 [facility] Medications Medication Details Route Status Patient Instructions Ordering Provider Order Date Source Albuterol Sulfate 0.63 Mg/3 Ml Vial.neb, 1 Inh Inhalation Every 12 Hours Active 07/31/2018 [facility] Clonazepam 0.5 Mg Tablet, 1 Mg Oral Every Morning Active 07/31/2018 [facility] Clonazepam 1 Mg Tablet, 2 Mg Oral Bedtime Active 07/31/2018 [facility] Hydrocodone Bit/Acetaminophen (Hydrocodon-Acetaminoph 7.5-325) 1 Each Tablet, 7.5- 325 Mg Oral Three Times A Day Active 07/31/2018 [facility] Omeprazole 20 Mg Tablet.dr, 20 Mg Oral Every Morning Active 07/31/2018 [facility] Quetiapine Fumarate 25 Mg Tablet, 25 Mg Peg Tube Daily Active 07/31/2018 [facility] Sertraline Hcl 50 Mg Tablet, 50 Mg Oral Daily Active 07/31/2018 [facility] Venalafaxin , 100 Mg Oral Twice A Day Active 07/31/2018 [facility] Cefdinir (Omnicef) 300 Mg Capsule, 300 Mg Oral Twice A Day Active Goins 07/27/2015 [facility] Bupropion Hcl 75 Mg Tablet, 75 Mg Oral Every Morning Active 05/12/2014 [facility] Calcium Carbonate (Calcium) 600 Mg Tablet, 600 Mg Oral Twice A Day Active 05/12/2014 [facility] Lamotrigine 200 Mg Tablet, 200 Mg Oral Every Morning Active 05/12/2014 [facility] Prednisone 20 Mg Tab, 30 Mg Oral Daily Active 05/12/2014 [facility] Vceloazepam , 2 Mg Oral Every Evening Active 05/12/2014 [facility] Vit D3 2000 U , 2000 U Oral Every Evening Active 05/12/2014 [facility] Benzonatate (Tessalon Perle) 100 Mg Capsule Every 6 Hours Active [facility] Bupropion Hcl 100 Mg Tablet Daily Active [facility] Duloxetine Hcl (Cymbalta) 30 Mg Capsule. Bedtime Active [facility] Gabapentin 300 Mg Capsule Three Times A Day Active [facility] Hydrocodone Bit/Acetaminophen ([place] 7.5-325 Tablet) 1 Each Tablet Every 4 Hours Active [facility] Ipratropium/Albuterol Sulfate (Combivent Respimat Inhal [place]) 4 Gm Aer.w.adap as needed for Shortness Of Breath Active [facility] Lamotrigine 100 Mg Tablet Every 12 Hours Active [facility] Levofloxacin (Levaquin) 500 Mg Tablet Daily Active [facility] Levothyroxine Sodium 50 Mcg Tablet Daily Active [facility] Metformin Hcl 500 Mg Tablet Every 12 Hours Active [facility] Methylphenidate Hcl 5 Mg Tablet Twice A Day Active [facility] Omeprazole 40 Mg Capsule. Daily Active [facility] Polyethylene Glycol 3350 (Miralax) 17 Gm Powd.pack Daily Active [facility] Risperidone 1 Mg Tablet Daily Active [facility] Risperidone (Risperdal) 1 Mg Tablet Bedtime Active [facility] Allergies, Adverse Reactions, Alerts Substance Category Reaction Severity Reaction type Status Date Reported Comments Source Sulfa (Sulfonamide Antibiotics) Unknown Allergy to Substance Active 07/31/2018 [facility] Immunizations Immunization Date Given Site Status Last Updated Comments Source Results Order Name Results Value Reference Range Date Interpretation Comments Source Capillary blood glucose measurement by glucometer (mass/volume) 145 70 - 120 08/04/2018 [facility] Blood leukocytes automated count (number/volume) 8.35 4.8 - 10.8 08/03/2018 [facility] Blood erythrocytes automated count (number/volume) 3.61 3.6 - 5.1 08/03/2018 [facility] Blood hemoglobin measurement (moles/volume) 11.2 12.0 - 16.0 08/03/2018 [facility] Automated blood hematocrit (volume fraction) 35.2 34.2 - 44.1 08/03/2018 [facility] Automated erythrocyte mean corpuscular volume 97.5 81 - 99 08/03/2018 [facility] Automated erythrocyte mean corpuscular hemoglobin (mass per erythrocyte) 31.0 28 - 32 08/03/2018 [facility] Automated erythrocyte mean corpuscular hemoglobin concentration measurement (mass/volume) 31.8 31 - 35 08/03/2018 [facility] RDW BldCo-Rto 12.4 11.7 - 14.4 08/03/2018 [facility] Automated blood platelet count (count/volume) 355 140 - 360 08/03/2018 [facility] Automated blood segmented neutrophil count as percentage of total leukocytes 73.8 38.7 - 80.0 08/03/2018 [facility] Automated blood lymphocyte count as percentage ot total leukocytes 18.4 18.0 - 39.1 08/03/2018 [facility] Automated blood monocyte count as percentage of total leukocytes 5.5 4.4 - 11.3 08/03/2018 [facility] Automated blood eosinophil count as percentage of total leukocytes 0.0 0.0 - 6.0 08/03/2018 [facility] Automated blood basophil count as percentage of total leukocytes 0.4 0.0 - 1.0 08/03/2018 [facility] IM GRANULOCYTES % 1.9 0.0 - 1.0 08/03/2018 [facility] Automated blood neutrophil count 6.2 2.1 - 6.9 08/03/2018 [facility] Blood lymphocytes count (number/volume) 1.5 1.0 - 3.2 08/03/2018 [facility] Blood monocytes automated count (number/volume) 0.5 0.2 - 0.8 08/03/2018 [facility] Automated blood eosinophil count 0.0 0.0 - 0.4 08/03/2018 [facility] Automated blood basophil count (count/volume) 0.0 0.0 - 0.1 08/03/2018 [facility] Absolute Immature Granulocyte (auto 0.16 0 - 0.1 08/03/2018 [facility] Serum or plasma sodium measurement (moles/volume) 139 136 - 145 08/03/2018 [facility] Serum or plasma potassium measurement (moles/volume) 4.1 3.5 - 5.1 08/03/2018 [facility] Serum or plasma chloride measurement (moles/volume) 100 98 - 107 08/03/2018 [facility] Serum or plasma carbon dioxide, total measurement (moles/volume) 27 22 - 29 08/03/2018 [facility] Serum or plasma anion gap 16.1 8 - 16 08/03/2018 [facility] Serum or plasma urea nitrogen measurement (mass/volume) 11 7 - 26 08/03/2018 [facility] Serum or plasma creatinine measurement (mass/volume) 0.71 0.57 - 1.11 08/03/2018 [facility] Serum or plasma urea nitrogen/creatinine mass ratio 15 6 - 25 08/03/2018 [facility] Estimated glomerular filtration rate (GFR) determination > 60 60 08/03/2018 [facility] Glucose measurement 148 74 - 118 08/03/2018 [facility] Serum or plasma calcium measurement (mass/volume) 9.3 8.4 - 10.2 08/03/2018 [facility] Prothrombin time (PT) in platelet poor plasma by coagulation assay 12.4 11.9 - 14.5 07/31/2018 [facility] INR in Platelet poor plasma by Coagulation assay 0.85 07/31/2018 [facility] Activated partial thromboplastin time (aPTT) in platelet poor plasma bycoagulation assay 31.5 23.8 - 35.5 07/31/2018 [facility] Serum or plasma total bilirubin measurement (mass/volume) 0.7 0.2 - 1.2 07/31/2018 [facility] Aspartate Amino Transf (AST/SGOT) 8 5 - 34 07/31/2018 [facility] Serum or plasma alanine aminotransferase measurement (enzymatic activity/volume) 12 0 - 55 07/31/2018 [facility] Serum or plasma protein measurement (mass/volume) 7.5 6.5 - 8.1 07/31/2018 [facility] Serum or plasma albumin measurement (mass/volume) 3.8 3.5 - 5.0 07/31/2018 [facility] Plasma globulin measurement (mass/volume) 3.7 2.3 - 3.5 07/31/2018 [facility] Serum or plasma albumin/globulin mass ratio 1.0 0.8 - 2.0 07/31/2018 [facility] Serum or plasma alkaline phosphatase measurement (enzymatic activity/volume) 78 40 - 150 07/31/2018 [facility] Serum or plasma creatine kinase measurement (enzymatic activity/volume) 27 29 - 168 07/31/2018 [facility] Serum or plasma creatine kinase MB measurement (mass/volume) 1.00 0 - 5.0 07/31/2018 [facility] Troponin I measurement by highly sensitive enzyme immunoassay 0.226 0 - 0.300 07/31/2018 [facility] Blood culture NO GROWTH AFTER 72 HOURS 07/31/2018 [facility] Vital Signs Vital Sign Value Date Comments Source Encounters Location Location Details Encounter Type Encounter Number Reason For Visit Attending Provider ADM Date DC Date Status Source Discharged Inpatient [id number] GEOFF AC MD 07/31/2018 08/04/2018 [facility] Procedures Procedure Code Date Perfomer Comments Source Computed tomography of chest without contrast [id number] 08/01/2018 [facility] X-ray of chest, two views [id number] 07/31/2018 DOE [facility]
--- NOTE | 2018-09-06 15:53 | Diagnostic Imaging Report ---
EXAMINATION: CHEST 2 VIEWS INDICATION: Cough, history of pneumonia. COMPARISON: CT Chest 08/01/2018. FINDINGS: TUBES and LINES: None. LUNGS: There are multifocal patchy nodular opacities scattered throughout the right lung, increased from radiograph on 08/01/2018 and better characterized on prior chest CT from 08/01/2018. The left lung is clear. No evidence of pulmonary edema. PLEURA: No pleural effusion or pneumothorax. HEART AND MEDIASTINUM: The cardiomediastinal silhouette is unremarkable. BONES AND SOFT TISSUES: No acute osseous lesion. Soft tissues are unremarkable. UPPER ABDOMEN: No free air under the diaphragm. IMPRESSION: Increased multifocal opacities throughout the right lung, compared to prior imaging on 08/01/2018, consistent with pneumonia. Follow-up chest CT is suggested in 6-8 weeks to assess for resolution. Signed by: Dr. Leanne Yeung MD on 09/06/2018 3:49 PM
--- NOTE | 2018-09-06 16:00 | NUR ---
Oc provided for pt kelsea beltrán provided.
[2018-09-06 16:06] LABS: BASOPHILS % 0.3 % (0.0-1.0); EOSINOPHILS % 0.1 % (0.0-6.0); HEMOGLOBIN 12.7 g/dL (12.0-16.0); LYMPHOCYTES # (AUTO) 1.1 (1.0-3.2); LYMPHOCYTES % 12.2 % (18.0-39.1); MEAN CORPUSCULAR HEMOGLOBIN 31.1 pg (28-32); MEAN CORPUSCULAR HGB CONC 32.6 g/dL (31-35); MEAN CORPUSCULAR VOLUME 95.6 fL (81-99); MONOCYTES # (AUTO) 0.8 (0.2-0.8); MONOCYTES % 9.1 % (4.4-11.3); NEUTROPHILS # (AUTO) 6.7 (2.1-6.9); NEUTROPHILS % 77.4 % (38.7-80.0); PLATELET COUNT 229 x10e3/uL (140-360); RED BLOOD COUNT 4.08 x10e6/uL (3.6-5.1); RED CELL DISTRIBUTION WIDTH 12.8 % (11.7-14.4)
--- NOTE | 2018-09-06 16:18 | NUR ---
Beny Rueda NP ok for pt to eat what she requests. Meal tray ordered for pt at this time. Called cafeteria and spoke with Angela, stated will bring tray down to pt. Pt and family notified.
[2018-09-06 16:19] LABS: ANION GAP 16.4 mmol/L (8-16); BLOOD UREA NITROGEN 10 mg/dL (7-26); BUN/CREATININE RATIO 14 (6-25); CALCIUM 9.1 mg/dL (8.4-10.2); CARBON DIOXIDE 24 mmol/L (22-29); CHLORIDE 103 mmol/L (98-107); CREATININE, SERUM 0.72 mg/dL (0.57-1.11); EST GLOMERULAR FILTRATION RATE > 60 ML/MIN (60-); GLUCOSE 133 mg/dL (74-118); POTASSIUM 3.4 mmol/L (3.5-5.1); SODIUM 140 mmol/L (136-145)
[2018-09-06] MEDS ORDERED: HYDROCODONE/APAP 7.5MG-325MG 1 EA TAB PO PRN (16:45)
[2018-09-06] MEDS ORDERED: VANCOMYCIN 1GM/NS 250 ML 250 ML IV ONE (16:50)
[2018-09-06] MEDS ORDERED: SODIUM CHLORIDE FLUSH 10 ML SYR INJ PRN (17:00)
[2018-09-06] MEDS ORDERED: ONDANSETRON HCL INJ 2MG/ML 2ML 2 MG/ML VIAL IV PRN (17:00)
[2018-09-06] MEDS: MEROPENEM 1GM 100 ML IV SCH (17:07)
[2018-09-06] MEDS ORDERED: CYMBALTA30 MG (17:18)
[2018-09-06] MEDS ORDERED: CITRICAL (17:18)
[2018-09-06] MEDS ORDERED: ALBUTEROL/ATROVENT (17:18)
[2018-09-06 17:19] LABS: CREATINE KINASE 43 IU/L (29-168)
[2018-09-06 17:33] LABS: BILIRUBIN,URINE NEGATIVE (NEGATIVE); CLARITY,URINE SL CLOUDY (CLEAR); COLOR,URINE YELLOW (YELLOW); KETONES,URINE NEGATIVE (NEGATIVE); LEUKOCYTE ESTERASE ,URINE 2+ (NEGATIVE); NITRITE,URINE NEGATIVE (NEGATIVE); PROTEIN,URINE DIPSTICK NEGATIVE (NEGATIVE); URINE UROBILINOGEN 0.2 mg/dL (0.2 - 1)
[2018-09-06 17:43] LABS: BACTERIA,URINE MODERATE /HPF; EPITHELIAL CELLS,URINE FEW /LPF; RENAL EPITHELIAL CELLS,URINE FEW; TRANSITIONAL EPI CELLS,URINE FEW
--- NOTE | 2018-09-06 18:20 | NUR ---
REPORT AND PATIENT CARE ENDORSED TO JEREMIAH. INFORMED HER THAT AZACTAM IS DUE AFTER VANCOMYCIN IS COMPLETED AND WILL BE SENT WITH PATIENT
--- NOTE | 2018-09-06 19:00 | NUR ---
Report received and walking rounds complete. Pt arrived to floor at shift change. Pt A&O and in no apparent distress. Pt daughters at bedside. Pt 2LNC and no tele. All safety measures ensured, bed alarm on, and pt call [place] near. Pt encouraged to use call [place] for assistance.
[2018-09-06 20:00] VITALS: BP 118/58
[2018-09-06 20:13] VITALS: BP 117/68
--- NOTE | 2018-09-06 20:31 | NUR ---
Call put into Dr. Thomas re: pt requesting pain med
--- NOTE | 2018-09-06 21:02 | NUR ---
2nd call put into Dr. Thomas for orders for pain meds
[2018-09-06] MEDS: AZTREONAM 2GM/NS 100ML 100 ML IV SCH ×2 (22:20→22:21)
[2018-09-06] MEDS ORDERED: SODIUM CHLORIDE 0.9% 250ML 250 ML ONE (22:34)
[2018-09-07] VITALS (7 sets, daily range): BP systolic 98–121; BP diastolic 51–69
[2018-09-07] MEDS: MEROPENEM 1GM 100 ML IV SCH ×4 (01:03→21:47)
[2018-09-07 04:51] LABS: BASOPHILS % 0.3 % (0.0-1.0); EOSINOPHILS # (AUTO) 0.1 (0.0-0.4); EOSINOPHILS % 1.4 % (0.0-6.0); HEMATOCRIT 34.5 % (34.2-44.1); LYMPHOCYTES # (AUTO) 1.6 (1.0-3.2); LYMPHOCYTES % 15.4 % (18.0-39.1); MEAN CORPUSCULAR HEMOGLOBIN 30.6 pg (28-32); MEAN CORPUSCULAR HGB CONC 31.9 g/dL (31-35); MEAN CORPUSCULAR VOLUME 95.8 fL (81-99); MONOCYTES # (AUTO) 1.1 (0.2-0.8); MONOCYTES % 10.9 % (4.4-11.3); NEUTROPHILS # (AUTO) 7.1 (2.1-6.9); NEUTROPHILS % 70.8 % (38.7-80.0); PLATELET COUNT 199 x10e3/uL (140-360)
[2018-09-07 05:11] LABS: CREATINE KINASE 23 IU/L (29-168)
[2018-09-07] MEDS: AZTREONAM 2GM/NS 100ML 100 ML IV SCH (05:37)
--- NOTE | 2018-09-07 06:21 | NUR ---
Spoke with Dr. Thomas re: needing pt orders. Pt c/o SOB and back pain. ok'd for pt to have Nebs q 4hrs (restart of inhaler meds from list)and ok to restart home med Hydrocodone 7.5mg q 4h for pt chronic back pain.
--- NOTE | 2018-09-07 06:37 | Diagnostic Imaging Report ---
CHEST SINGLE (PORTABLE), 09/07/2018 7:00 AM Technique: CHEST SINGLE (PORTABLE) Comparison: 08/01/2018, 09/06/2018 Clinical history: Cough Findings: See Impression Impression: 1. Lines/Tubes: None 2. Stable cardiomediastinal silhouette. 3. Persistent asymmetric right lung opacities, which may be related to pneumonia. Possible underlying pleural fluid or thickening. No pneumothorax. Signed by: Dr Lorin Bailey MD on 09/07/2018 6:34 AM
[2018-09-07 06:41] LABS: ANION GAP 15.8 mmol/L (8-16); BLOOD UREA NITROGEN 11 mg/dL (7-26); BUN/CREATININE RATIO 15 (6-25); CALCIUM 8.9 mg/dL (8.4-10.2); CARBON DIOXIDE 24 mmol/L (22-29); CHLORIDE 103 mmol/L (98-107); CREATININE, SERUM 0.73 mg/dL (0.57-1.11); EST GLOMERULAR FILTRATION RATE > 60 ML/MIN (60-); GLUCOSE 130 mg/dL (74-118); POTASSIUM 3.8 mmol/L (3.5-5.1); SODIUM 139 mmol/L (136-145)
[2018-09-07] MEDS ORDERED: ALBUTEROL/IPRATROPIUM 3 ML NEB NEB SCH (07:00)
--- NOTE | 2018-09-07 07:22 | NUR ---
report given to oncoming nurse
[2018-09-07] MEDS: HYDROCODONE/APAP 7.5MG-325MG 1 EA TAB PO SCH ×4 (07:30→20:19)
[2018-09-07] MEDS ORDERED: LEVOTHYROXINE SODIUM 50 MCG TAB PO SCH (09:00)
[2018-09-07] MEDS ORDERED: RISPERIDONE 1 MG TAB PO SCH (09:00)
[2018-09-07] MEDS ORDERED: DEXTROSE 50% SYRINGE 50 ML IV PRN (09:00)
[2018-09-07] MEDS ORDERED: AZITHROMYCIN 250 MG TAB PO NR (09:45)
[2018-09-07] MEDS: RISPERIDONE 0.5 MG TAB PO SCH (09:46)
[2018-09-07] MEDS: DULOXETINE HCL 30 MG DELAYED RELEASE PO SCH (09:46)
[2018-09-07] MEDS: LAMOTRIGINE 100 MG TAB PO SCH ×2 (09:46→20:19)
[2018-09-07] MEDS: GABAPENTIN 300 MG CAP PO SCH ×3 (09:46→20:19)
[2018-09-07] MEDS: METHYLPHENIDATE HCL 10 MG TAB PO SCH ×2 (09:49→14:51)
[2018-09-07] MEDS: PANTOPRAZOLE SOD 40 MG TABEC PO SCH (09:49)
[2018-09-07] MEDS: METFORMIN HCL 500 MG TAB PO SCH ×2 (09:49→16:33)
[2018-09-07] MEDS: BUPROPION HCL 100 MG TAB PO SCH (09:51)
--- NOTE | 2018-09-07 10:29 | NUR ---
patient admitted to inpatient and transferred to room 205. report called. all personal belongings transferred. patient to CT scan and will be transported to [address]
--- NOTE | 2018-09-07 10:36 | History and Physical ---
PRIMARY CARE PROVIDER: Dr. Bam Goins CHIEF COMPLAINT: Recurrent pneumonia and fever. A 68-year-old female with pneumonia approximately 1 month ago where she was having right lung pneumonia. Apparently, she was feeling bad for the past few days. Came back to see Dr. Bam Goins, and x-ray showed she has a right lung infiltrates and also an abnormal chest examination. The patient is otherwise stable. She is admitted to the hospital for further evaluation. PAST MEDICAL HISTORY: Pneumonia back in July, diabetes, type 2, chronic obstructive pulmonary disease, hypothyroidism, bipolar disorder, chronic neck, lower back and multiple joint area pain, gastric reflux. PAST SURGICAL HISTORY: Hysterectomy and cholecystectomy. SOCIAL HISTORY: Patient is an ex-smoker. She denied alcohol use. No recreational drugs. ALLERGIES: SULFA. HOME MEDICATIONS: List reviewed. REVIEW OF SYSTEMS: Cough, low-grade fever and not feeling well. PHYSICAL EXAMINATION VITAL SIGNS: Temperature is 100, blood pressure 110/53, pulse rate 83, respirations 18. GENERAL: The patient is not in acute distress. She is awake. HEENT: Normocephalic, atraumatic and anicteric. NECK: Supple grossly. PULMONARY: Diminished breath sounds bilaterally, but worse on the right lung with coarses. CARDIOVASCULAR: Regular rate and rhythm. ABDOMEN: Soft and unremarkable. EXTREMITIES: No gross cyanosis or edema. NEUROLOGIC: No gross focal deficit. LABORATORY: Sodium is 139, potassium 3.8, chloride 103, bicarb 24, BUN 11, creatinine 0.7, glucose 130. WBC is 10, hemoglobin 11, hematocrit is 34, and platelets 199,000. Chest x-ray showed infiltrate in the right lung. IMPRESSION 1. Recurrent right chest pneumonia with abnormal examination. 2. Shortness of breath and low-grade fever. PLAN: CT of chest without contrast. Meropenem and azithromycin for now. Will monitor the patient closely. Repeat lab work. Resume home medications. Insulin sliding scale coverage. Will continue to monitor the patient closely at this time. Job#: [id number] [facility]
--- NOTE | 2018-09-07 10:38 | NUR ---
PATIENT ARRIVED TO ROOM 205 AT THIS TIME. SHE IS IN STABLE CONDITION. ORIENTED TO ROOM AND POLICIES. CALL LIGHT WITHIN REACH. BED IN THE LOWEST POSITION.
[2018-09-07] MEDS: INSULIN LISPRO 100 UNIT/1 ML 3ML VIAL SQ SCH ×3 (11:30→20:19)
--- NOTE | 2018-09-07 12:40 | NUR ---
PATIENT REQUESTING NEB TREATMENT. RT CALLED TO GIVE PATIENT A TREATMENT.
--- NOTE | 2018-09-07 13:01 | Diagnostic Imaging Report ---
EXAMINATION: CT scan of the chest without contrast. TECHNIQUE: Helical CT images of the chest were performed from the lung apices to the level of the adrenal glands. No intravenous contrast was administered Coronal and sagittal reformatted images were obtained. Dose modulation, iterative reconstruction, and/or weight based adjustment of the mA/kV was utilized to reduce the radiation dose to as low as reasonably achievable. COMPARISON: September 07 2018 CLINICAL HISTORY:Pneumonia evaluation DISCUSSION: ABSENCE OF INTRAVENOUS CONTRAST DECREASES SENSITIVITY FOR DETECTION OF FOCAL LESIONS AND VASCULAR PATHOLOGY. LINES/TUBES: None. LUNGS AND AIRWAYS: Increased right lung groundglass and nodular consolidations with relatively stable right lower lobe scarring/atelectasis. Mild bronchiectasis involving the right lung. Scattered small nodules within the left lung predominantly in a subpleural location and are stable and measure up to 4 mm. PLEURA: No pneumothorax or pleural effusions. HEART AND MEDIASTINUM: The thyroid gland is normal. The heart and pericardium are within normal limits. LYMPH NODES: Multiple prominent mediastinal lymph nodes present bilaterally in the right paratracheal region. ABDOMEN: Limited contrast-enhanced views of the upper abdomen show no abnormality within the visualized liver, spleen, pancreas, or kidneys. The adrenal glands are normal. BONES AND SOFT TISSUES: No acute bony abnormalities. IMPRESSION: Increased right lung groundglass and nodular consolidations may reflect chronic aspiration, infectious or organizing pneumonia. Signed by: Dr. Everton Hooper M.D. on 09/07/2018 1:31 PM
--- NOTE | 2018-09-07 14:26 | NUR ---
PER PATIENT'S DAUGHTER, PATIENT DID NOT GET HER BREATHING TREATMENT EARLIER. RT CALLED AGAIN. PATIENT IS NOB IN ANY ACUTE DISTRESS.
[2018-09-07] MEDS ORDERED: SODIUM CHLORIDE 0.9% 250ML 250 ML ONE (14:36)
[2018-09-07] MEDS: ALBUTEROL/IPRATROPIUM 3 ML NEB NEB PRN (14:47)
--- NOTE | 2018-09-07 14:57 | NUR ---
ALSO LEAVE THE DUONEB Q4H PRN IS NOW.
--- NOTE | 2018-09-07 14:57 | NUR ---
PATIENT'S DAUGHTER AND PATIENT REQUESTING BREATHING TREATMENTS TO BE SCHEDULED. CALLED DR. AC AND RECEIVED ORDER FOR DUONEB Q6H SCHEDULED.
--- NOTE | 2018-09-07 16:12 | NUR ---
BILL OF LADING CLERK INITIAL ASSESSMENT Buttonhole Marker to bedside to discuss plan of care with patient/family. CM/SW role and care transitions discussed. Anticipated discharge plan discussed along with duration of care. CM/SW discussed patients right to make decisions in care. CM/SW work hours given. Patient lives: in [facility] with daughter Admit/Transfer: through ED POA/Emergency contact: oswald Bryant [phone] Current/Previous Home Health: none PCP/Follow-up Care: Dr. Bam Goins Current/Previous DME: RW, cane, concentrator, nebulizer. DME company: [employer] Other Services: none Employment Status: Retired Areas of Concerns: none Referral Needs: none Education Needs: educated on pneumonia prevention IMM/KIM given and signed (if applicable): IMM Goal for discharge: return home CM/SW left business card at the bedside with contact information. Name and number was also written on the patients whiteboard. Patient verbalized understanding of discussion. CM will follow-up with ongoing discharge and transition of care needs.
--- NOTE | 2018-09-07 16:22 | NUR ---
When speaking with pt earlier, Patient stated she does not want any home health ordered.
--- NOTE | 2018-09-07 19:18 | NUR ---
REPORT GIVEN TO ONCOMING NURSE. NO ACUTE DISTRESS NOTED. CALL LIGHT WITHIN REACH. BED IN THE LOWEST POSITION. BED ALARM ON.
[2018-09-07] MEDS: ALBUTEROL/IPRATROPIUM 3 ML NEB NEB SCH ×2 (19:55→23:16)
[2018-09-07] MEDS: RISPERIDONE 1 MG TAB PO SCH (20:19)
[2018-09-08] VITALS (8 sets, daily range): BP systolic 99–125; BP diastolic 50–63
[2018-09-08] MEDS: HYDROCODONE/APAP 7.5MG-325MG 1 EA TAB PO SCH ×6 (00:17→20:46)
[2018-09-08 04:59] LABS: BASOPHILS % 0.5 % (0.0-1.0); EOSINOPHILS # (AUTO) 0.2 (0.0-0.4); EOSINOPHILS % 2.7 % (0.0-6.0); HEMATOCRIT 32.4 % (34.2-44.1); LYMPHOCYTES # (AUTO) 1.3 (1.0-3.2); LYMPHOCYTES % 20.1 % (18.0-39.1); MEAN CORPUSCULAR HEMOGLOBIN 29.9 pg (28-32); MEAN CORPUSCULAR HGB CONC 30.9 g/dL (31-35); MONOCYTES # (AUTO) 0.7 (0.2-0.8); MONOCYTES % 10.3 % (4.4-11.3); NEUTROPHILS # (AUTO) 4.3 (2.1-6.9); PLATELET COUNT 212 x10e3/uL (140-360); RED BLOOD COUNT 3.34 x10e6/uL (3.6-5.1); RED CELL DISTRIBUTION WIDTH 13.2 % (11.7-14.4)
[2018-09-08] MEDS: LEVOTHYROXINE SODIUM 75 MCG TAB PO SCH (05:03)
[2018-09-08] MEDS: MEROPENEM 1GM 100 ML IV SCH ×3 (05:03→22:25)
[2018-09-08 05:23] LABS: ANION GAP 12.8 mmol/L (8-16); BLOOD UREA NITROGEN 8 mg/dL (7-26); BUN/CREATININE RATIO 12 (6-25); CALCIUM 8.6 mg/dL (8.4-10.2); CARBON DIOXIDE 26 mmol/L (22-29); CHLORIDE 105 mmol/L (98-107); CREATININE, SERUM 0.66 mg/dL (0.57-1.11); EST GLOMERULAR FILTRATION RATE > 60 ML/MIN (60-); GLUCOSE 115 mg/dL (74-118); POTASSIUM 3.8 mmol/L (3.5-5.1); SODIUM 140 mmol/L (136-145)
[2018-09-08] MEDS: ALBUTEROL/IPRATROPIUM 3 ML NEB NEB SCH ×4 (07:00→23:15)
[2018-09-08] MEDS: INSULIN LISPRO 100 UNIT/1 ML 3ML VIAL SQ SCH ×3 (07:30→20:46)
[2018-09-08] MEDS: PANTOPRAZOLE SOD 40 MG TABEC PO SCH (08:32)
[2018-09-08] MEDS: METFORMIN HCL 500 MG TAB PO SCH ×2 (08:32→17:18)
[2018-09-08] MEDS: METHYLPHENIDATE HCL 10 MG TAB PO SCH ×2 (08:32→15:46)
[2018-09-08] MEDS: DULOXETINE HCL 30 MG DELAYED RELEASE PO SCH (08:34)
[2018-09-08] MEDS: AZITHROMYCIN 250 MG TAB PO SCH (08:34)
[2018-09-08] MEDS: LAMOTRIGINE 100 MG TAB PO SCH ×2 (08:34→20:46)
[2018-09-08] MEDS: RISPERIDONE 0.5 MG TAB PO SCH (08:34)
[2018-09-08] MEDS: BUPROPION HCL 100 MG TAB PO SCH (08:34)
[2018-09-08] MEDS: GABAPENTIN 300 MG CAP PO SCH ×3 (08:34→20:46)
--- NOTE | 2018-09-08 09:20 | NUR ---
Pt. expressed no spiritual or emotional concerns at this time. Provided hospitality and information on how to contact chief physical therapist, if needed. ALEJANDRA BYRD [employer] Worker Spiritual Care Department O: [phone] Pager: [phone] ([phone] number calling from)
--- NOTE | 2018-09-08 10:00 | NUR ---
notified of patient refusing insulin in the past few days however also made MD aware of finger blood glucose results for past 2 days and new order for low dose sliding scale received.
--- NOTE | 2018-09-08 14:21 | Consultation ---
DATE OF CONSULTATION: September 08, 2018 PULMONARY CONSULTATION REASON FOR CONSULT: Shortness of breath. HPI: Ms. Guzmán is a 68-year-old female. She presented with shortness of breath and cough. She denies any complaints of chest pain, nausea or vomiting. She had some pleuritic chest pain on the right side as well. With x-rays, she was seen by Dr. Goins in the office and showed infiltrate. CT of the chest, I reviewed the images. It is showing multilobar pneumonia on the right side and nodular consolidation. She is an ex-smoker. Smoked for 20+ years and quit 20 years ago. REVIEW OF SYSTEMS GENERAL: Denies any fever or chills. HEENT: Denies any head trauma. ENT: Denies any earache. CV: Denies any chest pain. RESPIRATORY: Shortness of breath. GI: Denies any nausea or vomiting. Also, is having some pleuritic chest pain. The rest of the review of systems are negative except as in HPI. PAST MEDICAL HISTORY: Hypertension, history of pneumonia in July, type 2 diabetes mellitus, hypothyroidism, chronic neck and back pain. SURGICAL HISTORY: Hysterectomy and cholecystectomy. FAMILY/SOCIAL HISTORY: She is an ex-smoker. Twenty years of smoking history and quit 20 years ago. Denies any alcohol use. PHYSICAL EXAMINATION VITAL SIGNS: Temperature 97, pulse of 80, blood pressure 100/53, respiratory rate of 18, O2 sat 96%. HEENT: Head is atraumatic and normocephalic. NECK: Supple. CHEST: Clear to auscultation bilaterally except crackles and bronchial breath sounds on the right side. HEART: S1 and S2 audible. ABDOMEN: Soft, nontender and nondistended. EXTREMITIES: No clubbing, cyanosis or edema. NEUROLOGIC: Awake and alert. LABS: White count of 6000, hemoglobin 10, and platelets 212,000. Chemistry is within normal limits. CT of the chest, I reviewed the films and compared it with the July films, and it is showing the right lower lobe infiltrate and pneumonia. This is recurrent and 3 episodes have happened. ASSESSMENT AND PLAN: Ms. Guzmán is a 68-year-old female with recurrent right-sided pneumonia with multilobar infiltrate and areas of consolidation, 3 episodes. Patient had it in July of 2018, and now again had similar episode 1-1/2 months later. The areas of consolidation are a little bit more pronounced. I am unsure that if it is residual changes from previous pneumonia versus a pneumonia as some times the radiological is around 2-3 months in improvement. PLAN 1. Agree with the IV antibiotics, which has been ordered by Dr. Thomas. Possibly will need bronchoscopy. 2. Agree with MBS to rule out aspiration. 3. Nebulizer treatment as ordered as the patient has a history of smoking. Job#: [id number] MARIAA
[2018-09-08] MEDS: ALBUTEROL/IPRATROPIUM 3 ML NEB NEB PRN (15:39)
--- NOTE | 2018-09-08 16:14 | Diagnostic Imaging Report ---
PROCEDURE: X-RAY MODIFIED BARIUM SWALLOW COMPARISON: None. INDICATION: Possible aspiration. Radiation Details: Fluoroscopy time: 2.2 minutes Cumulative dose: 11.4 mGy DISCUSSION: Fluoroscopic examination was performed in conjunction with speech pathology during swallowing a variety of thin and thick liquid consistencies. Provided images demonstrate trace laryngeal penetration and trace aspiration. There is trace pyriform sinus and pharyngeal wall residue. CONCLUSION: Modified barium swallow demonstrating trace laryngeal penetration and trace aspiration. Please refer to the speech pathology report for further details. Signed by: Dr. Leanne Yeung MD on 09/08/2018 4:11 PM
[2018-09-08] MEDS: RISPERIDONE 1 MG TAB PO SCH (20:46)
[2018-09-09] VITALS (7 sets, daily range): BP systolic 110–163; BP diastolic 55–77
[2018-09-09] MEDS: HYDROCODONE/APAP 7.5MG-325MG 1 EA TAB PO SCH ×4 (00:22→16:54)
[2018-09-09] MEDS: ALBUTEROL/IPRATROPIUM 3 ML NEB NEB PRN (03:20)
[2018-09-09] MEDS: LEVOTHYROXINE SODIUM 75 MCG TAB PO SCH (05:12)
[2018-09-09] MEDS: MEROPENEM 1GM 100 ML IV SCH ×3 (05:12→21:43)
[2018-09-09] MEDS: ALBUTEROL/IPRATROPIUM 3 ML NEB NEB SCH ×4 (07:04→23:25)
[2018-09-09] MEDS: INSULIN LISPRO 100 UNIT/1 ML 3ML VIAL SQ SCH ×4 (07:30→20:30)
--- NOTE | 2018-09-09 08:02 | NUR ---
Patient calling stating that she is short of breath. Patient received breathing treatment at approximately 0700. Patient's O2 saturation is 95% on 2L NC. Patient is not in distress. patient moved to side of bed to aid in deep breathing. Patient only able to sit in this position a short time due to chronic sacral pain from fracture. I educated the patient to sit in the bed with head elevated. Patient stated relief after sitting up on side of bed.
[2018-09-09] MEDS ORDERED: XOPENEX HFA15 GM INH (08:43)
[2018-09-09] MEDS ORDERED: EPINEPHRINE HCL 1:1000 1ML 1 MG/ML AMP ONE (10:11)
[2018-09-09] MEDS ORDERED: LIDOCAINE HCL 4% 50 ML BTL ONE (10:11)
--- NOTE | 2018-09-09 11:00 | NUR ---
ST Note: Attempted to see pt for dysphagia therapy but off floor for procedure. Will return later time permitting.
[2018-09-09] MEDS: PANTOPRAZOLE SOD 40 MG TABEC PO SCH (12:06)
[2018-09-09] MEDS: GABAPENTIN 300 MG CAP PO SCH ×3 (12:06→20:36)
[2018-09-09] MEDS: DULOXETINE HCL 30 MG DELAYED RELEASE PO SCH (12:06)
[2018-09-09] MEDS: LAMOTRIGINE 100 MG TAB PO SCH ×2 (12:06→20:36)
[2018-09-09] MEDS: METFORMIN HCL 500 MG TAB PO SCH ×2 (12:06→16:27)
[2018-09-09] MEDS: BUPROPION HCL 100 MG TAB PO SCH (12:06)
[2018-09-09] MEDS: METHYLPHENIDATE HCL 10 MG TAB PO SCH ×2 (12:06→14:00)
[2018-09-09] MEDS: RISPERIDONE 0.5 MG TAB PO SCH (12:06)
--- NOTE | 2018-09-09 12:49 | Operative Report ---
DATE OF PROCEDURE: September 09, 2018 PREPROCEDURE DIAGNOSES 1. Abnormal chest x-ray. 2. Possible pneumonia. POSTPROCEDURE DIAGNOSES 1. Thick purulent secretions on the right side. 2. No endobronchial lesions. PROCEDURE PERFORMED: Bronchoscopy with bronchioalveolar lavage and transbronchial lung biopsy. [employer]OR [employer] YE[employer]: None. ANESTHESIA: General. PROCEDURE IN DETAIL: Bronchoscope was advanced through the ET tube. Nanci was identified. Thick secretion was seen in the trachea on the right side, which was suction, and BAL was sent for right middle lobe and lower lobe. Transbronchial lung biopsies were done from right lower lobe. COMPLICATIONS: None. Postprocedure chest x-ray is pending. Job#: [id number] EV
[2018-09-09] MEDS: AZITHROMYCIN 250 MG TAB PO SCH (12:53)
[2018-09-09] MEDS ORDERED: FENTANYL CITRATE/PF 100MCG/2 ML INJ ONE (13:22)
[2018-09-09] MEDS ORDERED: MIDAZOLAM HCL 2 MG/2 ML VIAL ONE (13:22)
--- NOTE | 2018-09-09 13:23 | Diagnostic Imaging Report ---
Examination: Single AP view of the chest. COMPARISON: None. INDICATION: Bronchoscopy, evaluate for pneumonia DISCUSSION: Lines/tubes: None. Lungs: Stable multifocal groundglass and nodular opacities in the right lung. Pleura: No pneumothorax. Heart and mediastinum: Prominent heart size. Bones and soft tissues: No acute bony abnormalities. IMPRESSION: 1. Stable multifocal groundglass and nodular opacities in the right lung. Signed by: Dr. Everton Hooper M.D. on 09/09/2018 1:19 PM
[2018-09-09] MEDS: BUDESONIDE/FORMOTEROL 160/4.5MCG INHALER INH SCH ×2 (14:35→19:00)
[2018-09-09] MEDS: HYDROCODONE/APAP 7.5MG-325MG 1 EA TAB PO PRN ×2 (16:27→20:30)
[2018-09-09] MEDS: RISPERIDONE 1 MG TAB PO SCH (20:36)
[2018-09-10] VITALS (7 sets, daily range): BP systolic 92–127; BP diastolic 53–63
[2018-09-10] MEDS: ALBUTEROL/IPRATROPIUM 3 ML NEB NEB PRN ×2 (03:45→07:00)
[2018-09-10] MEDS: HYDROCODONE/APAP 7.5MG-325MG 1 EA TAB PO PRN ×3 (04:33→13:33)
[2018-09-10 05:42] LABS: BASOPHILS # (AUTO) 0.1 (0.0-0.1); BASOPHILS % 1.1 % (0.0-1.0); EOSINOPHILS # (AUTO) 0.1 (0.0-0.4); EOSINOPHILS % 1.1 % (0.0-6.0); HEMATOCRIT 31.9 % (34.2-44.1); HEMOGLOBIN 9.9 g/dL (12.0-16.0); LYMPHOCYTES # (AUTO) 1.6 (1.0-3.2); LYMPHOCYTES % 33.6 % (18.0-39.1); MEAN CORPUSCULAR HEMOGLOBIN 30.3 pg (28-32); MEAN CORPUSCULAR VOLUME 97.6 fL (81-99); MONOCYTES # (AUTO) 0.6 (0.2-0.8); MONOCYTES % 12.1 % (4.4-11.3); NEUTROPHILS # (AUTO) 2.4 (2.1-6.9); NEUTROPHILS % 50.4 % (38.7-80.0); PLATELET COUNT 208 x10e3/uL (140-360); RED BLOOD COUNT 3.27 x10e6/uL (3.6-5.1); RED CELL DISTRIBUTION WIDTH 12.6 % (11.7-14.4)
[2018-09-10] MEDS: HYDROCODONE/APAP 7.5MG-325MG 1 EA TAB PO SCH ×4 (05:51→18:07)
[2018-09-10] MEDS: MEROPENEM 1GM 100 ML IV SCH ×3 (05:51→22:00)
[2018-09-10] MEDS: LEVOTHYROXINE SODIUM 75 MCG TAB PO SCH (05:51)
[2018-09-10 06:07] LABS: ANION GAP 15.4 mmol/L (8-16); BLOOD UREA NITROGEN 12 mg/dL (7-26); BUN/CREATININE RATIO 17 (6-25); CALCIUM 9.2 mg/dL (8.4-10.2); CARBON DIOXIDE 28 mmol/L (22-29); CHLORIDE 101 mmol/L (98-107); CREATININE, SERUM 0.72 mg/dL (0.57-1.11); EST GLOMERULAR FILTRATION RATE > 60 ML/MIN (60-); GLUCOSE 137 mg/dL (74-118); POTASSIUM 3.4 mmol/L (3.5-5.1); SODIUM 141 mmol/L (136-145)
[2018-09-10] MEDS: ALBUTEROL/IPRATROPIUM 3 ML NEB NEB SCH ×3 (07:00→19:00)
[2018-09-10] MEDS: BUDESONIDE/FORMOTEROL 160/4.5MCG INHALER INH SCH ×2 (07:26→19:00)
[2018-09-10] MEDS: INSULIN LISPRO 100 UNIT/1 ML 3ML VIAL SQ SCH ×4 (07:30→21:00)
[2018-09-10] MEDS: PANTOPRAZOLE SOD 40 MG TABEC PO SCH (07:30)
[2018-09-10] MEDS: METHYLPHENIDATE HCL 10 MG TAB PO SCH ×2 (07:36→13:33)
[2018-09-10] MEDS: METFORMIN HCL 500 MG TAB PO SCH ×2 (07:36→17:15)
[2018-09-10] MEDS: AZITHROMYCIN 250 MG TAB PO SCH (08:49)
[2018-09-10] MEDS: LAMOTRIGINE 100 MG TAB PO SCH ×2 (08:49→21:00)
[2018-09-10] MEDS: BUPROPION HCL 100 MG TAB PO SCH (08:49)
[2018-09-10] MEDS: GABAPENTIN 300 MG CAP PO SCH ×3 (08:49→21:00)
[2018-09-10] MEDS: RISPERIDONE 0.5 MG TAB PO SCH (08:49)
[2018-09-10] MEDS: DULOXETINE HCL 30 MG DELAYED RELEASE PO SCH (08:49)
--- NOTE | 2018-09-10 12:25 | Progress Note ---
DATE: September 10, 2018 MEDICINE PROGRESS NOTE I am covering for Dr. Thomas. SUBJECTIVE: Patient is being treated for community-acquired pneumonia. She is otherwise doing well today with no other complaints. The patient had status post bronchoscopy yesterday. OBJECTIVE VITAL SIGNS: Temperature is 96.8, pulse 67, respiratory rate 20, blood pressure 96/73, pulse ox 94% on 2 liters of cannula. GENERAL: Not in acute distress. Alert and oriented x3. Cooperative on examination. HEENT: Head is normocephalic and atraumatic. Eyes: Pupils equal, round and reactive to light bilaterally. Extraocular movements intact bilaterally. NECK: Supple. Good range of motion. Throat with no evidence of any erythema or exudates in the posterior pharynx. Has poor dentition. PULMONARY: Clear to auscultation bilaterally. No wheezing. No rales. No rhonchi. No crackles appreciated. CARDIOVASCULAR: Positive S1 and S2. No murmurs, rubs or gallops. ABDOMEN: Soft, nondistended and nontender to palpation. Bowel sounds present. MUSCULOSKELETAL: Strength is 5/5 throughout. No evidence of any muscle deficit on examination. No weakness appreciated. NEUROLOGICAL: Cranial nerves II-XII are grossly intact. No evidence of any neurological deficits on exam. SKIN: Intact. Warm to touch. Good cap refill. PSYCHIATRIC: Normal affect and mood. EXTREMITIES: No edema. Good range of motion throughout. LAB FINDINGS: White count 4.7, hemoglobin 9.9, hematocrit 33, platelets of 208. Chemistries: Sodium 141, potassium 3.4, chloride 101, bicarb 28, anion gap of 15, BUN 12, creatinine 0.72, glucose 137, calcium 9.2. MICROBIOLOGY: Cultures; blood culture shows no growth. Sputum culture shows Klebsiella pneumoniae. Bronchial washings are pending. IMAGING STUDIES: Chest x-ray performed on September 09, 2018 shows stable multifocal ground-glass nodular opacities in the right lung field. IMPRESSION 1. Recurrent right chest pneumonia. 2. Shortness of breath likely at baseline. 3. Low-grade fever. PLAN: Pulmonary is consulted. The patient underwent a bronchoscopy on September 09, 2018, yesterday. She continues to be on IV antibiotics. She is improving daily. Labs reviewed is stable. We will continue with same plan of care. Job#: [id number] MONIQUE
[2018-09-10] MEDS: RISPERIDONE 1 MG TAB PO SCH (21:00)
[2018-09-11] VITALS (7 sets, daily range): BP systolic 96–123; BP diastolic 53–65
[2018-09-11] MEDS: HYDROCODONE/APAP 7.5MG-325MG 1 EA TAB PO SCH ×4 (00:26→18:00)
[2018-09-11] MEDS: ALBUTEROL/IPRATROPIUM 3 ML NEB NEB SCH ×4 (01:00→19:40)
--- NOTE | 2018-09-11 04:48 | NUR ---
Patient laying in bed with HOB slightly elevated. AAO x 4. No sob noted. No acute distress noted. Patient reports of 0/10 for pain. Bed at low position and locked. Call light within reach and reminded patient to utilize when help is needed. Patient in stable condition and will continue to monitor.
[2018-09-11] MEDS: BUDESONIDE/FORMOTEROL 160/4.5MCG INHALER INH SCH ×2 (06:53→19:40)
[2018-09-11] MEDS: MEROPENEM 1GM 100 ML IV SCH ×3 (07:00→20:43)
[2018-09-11] MEDS: LEVOTHYROXINE SODIUM 75 MCG TAB PO SCH (07:01)
[2018-09-11] MEDS: INSULIN LISPRO 100 UNIT/1 ML 3ML VIAL SQ SCH ×4 (07:30→20:27)
[2018-09-11] MEDS: RISPERIDONE 0.5 MG TAB PO SCH (08:23)
[2018-09-11] MEDS: LAMOTRIGINE 100 MG TAB PO SCH ×2 (08:23→20:43)
[2018-09-11] MEDS: METFORMIN HCL 500 MG TAB PO SCH ×2 (08:23→16:59)
[2018-09-11] MEDS: GABAPENTIN 300 MG CAP PO SCH ×3 (08:23→20:43)
[2018-09-11] MEDS: DULOXETINE HCL 30 MG DELAYED RELEASE PO SCH (08:23)
[2018-09-11] MEDS: AZITHROMYCIN 250 MG TAB PO SCH (08:23)
[2018-09-11] MEDS: PANTOPRAZOLE SOD 40 MG TABEC PO SCH (08:23)
[2018-09-11] MEDS: HYDROCODONE/APAP 7.5MG-325MG 1 EA TAB PO PRN ×4 (08:23→21:35)
[2018-09-11] MEDS: METHYLPHENIDATE HCL 10 MG TAB PO SCH ×2 (08:23→14:43)
[2018-09-11] MEDS: BUPROPION HCL 100 MG TAB PO SCH (08:23)
[2018-09-11] MEDS: DOCUSATE SODIUM 100 MG CAP PO PRN (10:51)
--- NOTE | 2018-09-11 12:08 | Progress Note ---
DATE: September 11, 2018 SUBJECTIVE: Patient is doing well. She does have right crackles on examination. She has no fever, tolerating the treatment well, not short of breath. She does report having a right pleuritic pain when she takes a deep inspiratory effort. PHYSICAL EXAMINATION VITAL SIGNS: Temperature is 97.4, pulse 75, respiratory rate is 20, blood pressure 107/53, pulse ox 93% on nasal cannula, 3 liters. GENERAL: Not in acute distress. Alert and oriented x3. Cooperative on examination. HEENT: Head is normocephalic and atraumatic. Eyes: Pupils equal, round, and reactive to light bilaterally. Extraocular movements intact bilaterally. Throat with no evidence of any erythema or exudates in the posterior pharynx. Has poor dentition. NECK: Supple. Good range of motion. PULMONARY: Clear to auscultation bilaterally. No wheezing. No rales. No rhonchi. Patient has decreased breath sounds on the right lung with crackles appreciated. CARDIOVASCULAR: Positive S1 and S2. No murmurs, rubs or gallops. ABDOMEN: Soft, nondistended, and nontender to palpation. Bowel sounds present. MUSCULOSKELETAL: Strength is 5/5 throughout. No evidence of any muscle deficit on examination. No weakness appreciated. NEUROLOGICAL: Cranial nerves II through XII are grossly intact. No evidence of any neurological deficits on exam. SKIN: Intact. Warm to touch. Good cap refill. PSYCHIATRIC: Normal affect and mood. EXTREMITIES: No edema. Good range of motion throughout. LABS: None today. MICROBIOLOGY: Sputum cultures positive for Klebsiella pneumoniae. Bronchial washings pending. Blood cultures are pending. IMPRESSION 1. Recurrent right-sided pneumonia. 2. Shortness of breath, on nasal cannula. 3. Low-grade fever. PLAN: At this time, I will get a chest x-ray because I hear some decreased breath sounds on the right side of the lung with crackles. Pulmonary is following as well. Bronchoscopy cultures are pending. Continue with IV antibiotics daily. Get a.m. labs. Discussed plan of care with nursing staff. Job#: [id number] SARA
--- NOTE | 2018-09-11 12:08 | Diagnostic Imaging Report ---
EXAM: XR CHEST 1 VIEW DATE: 09/11/2018 11:09 AM INDICATION: Shortness of breath COMPARISON: 09/07/2018 CT, no report available FINDINGS: Lines and Tubes: None Heart and Mediastinum: Enlarged. Lungs and Pleura: Trace effusions and asymmetric to the right opacities. Bones and Soft Tissues: No acute findings. IMPRESSION: 1. Asymmetric to the right edema and/or pneumonia. Signed by: Dr. Cody Gold MD on 09/11/2018 12:05 PM
[2018-09-11] MEDS ORDERED: PANTOPRAZOLE SOD 40 MG TABEC PO SCH (12:15)
[2018-09-11] MEDS ORDERED: IBUPROFEN 200 MG TAB PO PRN (12:15)
--- NOTE | 2018-09-11 19:15 | NUR ---
patient received. Patient is resting in bed. Resp even and unlabored. No acute distress noted. Patient denies of any pain or discomfort at this time. family at bed time. call light within reach. instruct to call for assistance. bed low/locked. continue to monitor closely
[2018-09-11] MEDS: RISPERIDONE 1 MG TAB PO SCH (20:43)
[2018-09-12] VITALS (9 sets, daily range): BP systolic 94–111; BP diastolic 50–61
[2018-09-12] MEDS: ALBUTEROL/IPRATROPIUM 3 ML NEB NEB SCH ×4 (00:55→19:30)
[2018-09-12 05:07] LABS: BASOPHILS # (AUTO) 0.1 (0.0-0.1); BASOPHILS % 1.1 % (0.0-1.0); EOSINOPHILS # (AUTO) 0.1 (0.0-0.4); HEMATOCRIT 35.4 % (34.2-44.1); HEMOGLOBIN 10.6 g/dL (12.0-16.0); LYMPHOCYTES # (AUTO) 1.8 (1.0-3.2); LYMPHOCYTES % 24.9 % (18.0-39.1); MEAN CORPUSCULAR HEMOGLOBIN 30.2 pg (28-32); MEAN CORPUSCULAR HGB CONC 29.9 g/dL (31-35); MEAN CORPUSCULAR VOLUME 100.9 fL (81-99); MONOCYTES # (AUTO) 0.7 (0.2-0.8); NEUTROPHILS # (AUTO) 4.2 (2.1-6.9); NEUTROPHILS % 59.7 % (38.7-80.0); PLATELET COUNT 87 x10e3/uL (140-360); RED BLOOD COUNT 3.51 x10e6/uL (3.6-5.1); RED CELL DISTRIBUTION WIDTH 13.2 % (11.7-14.4)
[2018-09-12] MEDS: MEROPENEM 1GM 100 ML IV SCH ×3 (05:58→21:02)
[2018-09-12] MEDS: LEVOTHYROXINE SODIUM 75 MCG TAB PO SCH (05:59)
[2018-09-12] MEDS: HYDROCODONE/APAP 7.5MG-325MG 1 EA TAB PO SCH ×2 (05:59)
[2018-09-12 06:44] LABS: BAND NEUTROPHILS % (MANUAL) 1 %; EOSINOPHILS % (MANUAL) 3 % (0-7); LYMPHOCYTES % (MANUAL) 33 % (19-48); METAMYELOCYTES % (MANUAL) 4 % (0-0); MONOCYTES % (MANUAL) 1 % (3.4-9.0); NEUTROPHILS % (MANUAL) 58 % (40-74)
[2018-09-12 06:45] LABS: ANISOCYTOSIS SLIGHT; PLATELET ESTIMATE MODERATELY DECREASED; PLATELET MORPHOLOGY COMMENT MANY EDTA CLUMPING; RBC MORPHOLOGY COMMENT ABNORMAL
[2018-09-12 06:50] LABS: ANION GAP 16.4 mmol/L (8-16); BLOOD UREA NITROGEN 11 mg/dL (7-26); BUN/CREATININE RATIO 15 (6-25); CALCIUM 9.2 mg/dL (8.4-10.2); CARBON DIOXIDE 27 mmol/L (22-29); CHLORIDE 102 mmol/L (98-107); CREATININE, SERUM 0.72 mg/dL (0.57-1.11); EST GLOMERULAR FILTRATION RATE > 60 ML/MIN (60-); GLUCOSE 102 mg/dL (74-118); POTASSIUM 4.4 mmol/L (3.5-5.1); SODIUM 141 mmol/L (136-145)
[2018-09-12] MEDS: BUDESONIDE/FORMOTEROL 160/4.5MCG INHALER INH SCH ×2 (07:00→19:00)
--- NOTE | 2018-09-12 07:13 | NUR ---
received pt lying in bed with eyes closed, Resp even and unlabored. call light within reach. bed in lowest and locked position, bed alarm on zone 1.
[2018-09-12] MEDS: INSULIN LISPRO 100 UNIT/1 ML 3ML VIAL SQ SCH ×4 (07:30→21:00)
[2018-09-12] MEDS: PANTOPRAZOLE SOD 40 MG TABEC PO SCH (08:34)
[2018-09-12] MEDS: METFORMIN HCL 500 MG TAB PO SCH ×2 (08:34→17:37)
[2018-09-12] MEDS: RISPERIDONE 0.5 MG TAB PO SCH (08:34)
[2018-09-12] MEDS: METHYLPHENIDATE HCL 10 MG TAB PO SCH ×2 (08:34→14:11)
[2018-09-12] MEDS: LAMOTRIGINE 100 MG TAB PO SCH ×2 (08:34→21:02)
[2018-09-12] MEDS: GABAPENTIN 300 MG CAP PO SCH ×3 (08:34→21:02)
[2018-09-12] MEDS: BUPROPION HCL 100 MG TAB PO SCH (08:34)
[2018-09-12] MEDS: AZITHROMYCIN 250 MG TAB PO SCH (08:34)
[2018-09-12] MEDS: DULOXETINE HCL 30 MG DELAYED RELEASE PO SCH (08:34)
[2018-09-12] MEDS ORDERED: IBUPROFEN 200 MG TAB PO PRN (10:30)
[2018-09-12 11:04] LABS: BASOPHILS # (AUTO) 0.1 (0.0-0.1); BASOPHILS % 0.8 % (0.0-1.0); EOSINOPHILS # (AUTO) 0.2 (0.0-0.4); EOSINOPHILS % 1.6 % (0.0-6.0); HEMATOCRIT 35.7 % (34.2-44.1); HEMOGLOBIN 11.2 g/dL (12.0-16.0); LYMPHOCYTES # (AUTO) 2.1 (1.0-3.2); LYMPHOCYTES % 22.6 % (18.0-39.1); MEAN CORPUSCULAR HEMOGLOBIN 30.2 pg (28-32); MEAN CORPUSCULAR HGB CONC 31.4 g/dL (31-35); MEAN CORPUSCULAR VOLUME 96.2 fL (81-99); MONOCYTES # (AUTO) 0.9 (0.2-0.8); MONOCYTES % 10.1 % (4.4-11.3); NEUTROPHILS # (AUTO) 5.8 (2.1-6.9); NEUTROPHILS % 63.1 % (38.7-80.0); PLATELET COUNT 267 x10e3/uL (140-360); RED BLOOD COUNT 3.71 x10e6/uL (3.6-5.1)
--- NOTE | 2018-09-12 11:53 | Progress Note ---
DATE: September 12, 2018 I am covering for Dr. Thomas. SUBJECTIVE: Patient is doing well today with only complaints of pleuritic pain upon taking deep inspiratory effort. Denies any chest pain. PHYSICAL EXAMINATION VITAL SIGNS: Temperature is 96.3, pulse 69, respiratory rate is 18, blood pressure 101/50, pulse ox 97%. GENERAL: Not in acute distress. Alert and oriented x3. Cooperative on examination. HEENT: Head is normocephalic and atraumatic. Eyes: Pupils equal, round, and reactive to light bilaterally. Extraocular movements intact bilaterally. Throat with no evidence of any erythema or exudates in the posterior pharynx. Has poor dentition. NECK: Supple. Good range of motion. PULMONARY: Has crackles appreciated in the right lower lung bases. No expiratory wheezing appreciated. Decreased breath sounds on the right lung field bases. CARDIOVASCULAR: Positive S1 and S2. No murmurs, rubs or gallops appreciated. ABDOMEN: Soft, nondistended, and nontender to palpation. Bowel sounds present. MUSCULOSKELETAL: Strength is 5/5 throughout. No evidence of any muscle deficit on examination. No weakness appreciated. NEUROLOGICAL: Cranial nerves II through XII are grossly intact. No evidence of any neurological deficits on exam. SKIN: Intact. Warm to touch. Good cap refill. PSYCHIATRIC: Normal affect and mood. EXTREMITIES: No edema. Good range of motion throughout. LABS: Show white count 7.1, hemoglobin 10.6, hematocrit is 35.4, platelets of 87. MICROBIOLOGY: Reviewed. IMAGING: Chest x-ray shows asymmetric right edema and/or pneumonia. IMPRESSIONS 1. Recurrent right-sided pneumonia. 2. Pleuritic chest pain. 3. Shortness of breath, on nasal cannula. 4. Low-grade fever, resolved. 5. Thrombocytopenia, likely to be an error. PLAN: At this time, I am going to repeat a CBC stat, see her platelets because it dropped. I am not sure if that is related to an infection or related to something else. We are going to monitor that very closely. We are going to get a.m. labs, CBC, BMP. Stop anticoagulation due to low platelets. We are going to give her Lasix 40 mg IV q.8 x3 doses. If the platelets are within normal range, I want to give her a dose of Toradol to help with the pleuritic pain. I will get repeat labs in the morning. Discussed plan of care with patient at bedside. Job#: [id number] ZAIRA
[2018-09-12] MEDS: FUROSEMIDE INJ 10 MG/ML 4 ML VIAL IV SCH ×2 (13:05→17:37)
[2018-09-12] MEDS: HYDROCODONE/APAP 7.5MG-325MG 1 EA TAB PO PRN ×2 (13:06→21:03)
[2018-09-12] MEDS ORDERED: KETOROLAC TROMETHAMINE 30 MG/ML VIAL IV NR (15:00)
--- NOTE | 2018-09-12 17:44 | Diagnostic Imaging Report ---
EXAM: CT Chest WITHOUT contrast 09/12/2018 2:35 PM INDICATION: Right pneumonia. Shortness of breath. Pleuritic chest pain. COMPARISON: September 07, 2018 TECHNIQUE: Chest was scanned utilizing a multidetector helical scanner from the lung apex through the level of the adrenal glands without administration of IV contrast. Absence of intravenous contrast decreases sensitivity for detection of lymphadenopathy and vascular pathology. Coronal and sagittal reformations were obtained. Routine protocol was performed. IV CONTRAST: None RADIATION DOSE: Total DLP: 510.26 mGy*cm Estimated effective dose: (DLP x 0.014 x size factor) mSv All CT scans are performed using radiation dose reduction techniques. Technical factors are evaluated and adjusted to ensure appropriate moderation of exposure. Automated dose management technology is applied to adjust the radiation dose to minimize exposure while achieving a diagnostic-quality image. COMPLICATIONS: None DISCUSSION: ABSENCE OF INTRAVENOUS CONTRAST DECREASES SENSITIVITY FOR DETECTION OF FOCAL LESIONS AND VASCULAR PATHOLOGY. LINES/TUBES: None. LUNGS AND AIRWAYS: Interval worsening of the previously seen right lung groundglass and nodular consolidations with relatively stable right lower lobe scarring/atelectasis. There is now more focal consolidation in the right lower lobe with an adjacent pleural effusion. Mild bronchiectasis involving the right lung. Scattered small nodules within the left lung predominantly in a subpleural location and are stable and measure up to 4 mm. PLEURA: No pneumothorax. HEART AND MEDIASTINUM: The thyroid gland is normal. The heart and pericardium are within normal limits. LYMPH NODES: Multiple prominent mediastinal lymph nodes present bilaterally in the right paratracheal region. ABDOMEN: Limited contrast-enhanced views of the upper abdomen show no abnormality within the visualized liver, spleen, pancreas, or kidneys. The adrenal glands are normal. BONES AND SOFT TISSUES: No acute bony abnormalities. IMPRESSION: Interval worsening of the previously seen right lung groundglass and nodular consolidations with relatively stable right lower lobe scarring/atelectasis. There is now more focal consolidation in the right lower lobe with an adjacent pleural effusion. Follow-up imaging is indicated to document clearing. Signed by: Dr. Farshad House M.D. on 09/12/2018 5:40 PM
[2018-09-12] MEDS: RISPERIDONE 1 MG TAB PO SCH (21:02)
[2018-09-12] MEDS: METHYLPREDNISOLONE SOD SUCC 40 MG/ML VIAL 1ML IV SCH (21:03)
[2018-09-12] MEDS: ALBUTEROL/IPRATROPIUM 3 ML NEB NEB PRN (23:45)
[2018-09-13] MEDS: FUROSEMIDE INJ 10 MG/ML 4 ML VIAL IV SCH (02:26)
[2018-09-13] MEDS: ALBUTEROL/IPRATROPIUM 3 ML NEB NEB SCH ×5 (03:05→23:00)
[2018-09-13 05:23] LABS: BASOPHILS % 0.6 % (0.0-1.0); HEMATOCRIT 36.5 % (34.2-44.1); HEMOGLOBIN 11.6 g/dL (12.0-16.0); LYMPHOCYTES # (AUTO) 0.8 (1.0-3.2); LYMPHOCYTES % 11.8 % (18.0-39.1); MEAN CORPUSCULAR HEMOGLOBIN 30.1 pg (28-32); MEAN CORPUSCULAR HGB CONC 31.8 g/dL (31-35); MEAN CORPUSCULAR VOLUME 94.8 fL (81-99); MONOCYTES # (AUTO) 0.3 (0.2-0.8); MONOCYTES % 3.6 % (4.4-11.3); NEUTROPHILS # (AUTO) 5.7 (2.1-6.9); NEUTROPHILS % 82.3 % (38.7-80.0); PLATELET COUNT 322 x10e3/uL (140-360); RED BLOOD COUNT 3.85 x10e6/uL (3.6-5.1)
[2018-09-13 05:38] LABS: ANION GAP 17.6 mmol/L (8-16); BUN/CREATININE RATIO 20 (6-25); CARBON DIOXIDE 29 mmol/L (22-29); CHLORIDE 97 mmol/L (98-107); CREATININE, SERUM 0.84 mg/dL (0.57-1.11); EST GLOMERULAR FILTRATION RATE > 60 ML/MIN (60-); GLUCOSE 170 mg/dL (74-118); POTASSIUM 4.6 mmol/L (3.5-5.1); SODIUM 139 mmol/L (136-145)
[2018-09-13 05:41] LABS: BLOOD UREA NITROGEN 17 mg/dL (7-26)
[2018-09-13] MEDS: MEROPENEM 1GM 100 ML IV SCH ×2 (06:02→14:24)
[2018-09-13] MEDS: METHYLPREDNISOLONE SOD SUCC 40 MG/ML VIAL 1ML IV SCH ×3 (06:02→21:06)
[2018-09-13] MEDS: LEVOTHYROXINE SODIUM 75 MCG TAB PO SCH (06:02)
[2018-09-13 06:18] VITALS: BP 109/53
[2018-09-13] MEDS: BUDESONIDE/FORMOTEROL 160/4.5MCG INHALER INH SCH ×2 (07:00→19:00)
--- NOTE | 2018-09-13 07:17 | NUR ---
pt awake and sitting in chair at bedside, resp even and unlabored at this time, pt has family member at bedside, when asked pt has no c/o pain. call light in reach.
[2018-09-13] MEDS: INSULIN LISPRO 100 UNIT/1 ML 3ML VIAL SQ SCH ×5 (07:30→21:06)
[2018-09-13 07:43] VITALS: BP 97/51
[2018-09-13] MEDS: HYDROCODONE/APAP 7.5MG-325MG 1 EA TAB PO PRN ×3 (08:36→21:58)
[2018-09-13] MEDS: AZITHROMYCIN 250 MG TAB PO SCH (08:49)
[2018-09-13] MEDS: LAMOTRIGINE 100 MG TAB PO SCH ×2 (08:49→21:05)
[2018-09-13] MEDS: METHYLPHENIDATE HCL 10 MG TAB PO SCH ×2 (08:49→14:24)
[2018-09-13] MEDS: METFORMIN HCL 500 MG TAB PO SCH ×2 (08:49→16:58)
[2018-09-13] MEDS: BUPROPION HCL 100 MG TAB PO SCH (08:49)
[2018-09-13] MEDS: RISPERIDONE 0.5 MG TAB PO SCH (08:49)
[2018-09-13] MEDS: PANTOPRAZOLE SOD 40 MG TABEC PO SCH (08:49)
[2018-09-13] MEDS: DULOXETINE HCL 30 MG DELAYED RELEASE PO SCH (08:49)
[2018-09-13] MEDS: GABAPENTIN 300 MG CAP PO SCH ×3 (08:49→21:05)
[2018-09-13 14:20] VITALS: BP 127/61
[2018-09-13] MEDS ORDERED: SUCCINYLCHOLINE 200 MG/10 ML SYR IV ONE (14:24)
[2018-09-13] MEDS ORDERED: ATROPINE SULFATE 1 MG/ML VIAL IV ONE (14:24)
[2018-09-13] MEDS ORDERED: DEXAMETHASONE SOD PHOS INJ 4 MG/ML VIAL IV ONE (14:24)
[2018-09-13] MEDS ORDERED: PROPOFOL IV EMULSION 10 MG/ML 20 ML VIAL IV ONE (14:24)
[2018-09-13] MEDS ORDERED: LIDOCAINE HCL 2% LOCAL INJ 5 ML SDV VIAL INJ ONE (14:24)
[2018-09-13] MEDS ORDERED: SEVOFLURANE INHAL SOLN 250 ML PEN BTL INH ONE (14:24)
[2018-09-13] MEDS ORDERED: NEOSTIGMINE 5 MG/5ML SYR IV ONE (14:24)
[2018-09-13] MEDS ORDERED: ROCURONIUM BROMIDE 10 MG/ML 5ML VIAL IV ONE (14:24)
[2018-09-13] MEDS ORDERED: ONDANSETRON HCL INJ 2MG/ML 2ML 2 MG/ML VIAL IV ONE (14:24)
[2018-09-13 16:35] VITALS: BP 136/77
[2018-09-13 16:37] VITALS: BP 115/57
--- NOTE | 2018-09-13 17:27 | NUR ---
Nutrition Screen Note RD Recommendation for Physician: - Recommend adding 1800 ADA restriction to current diet Plan of Care: RD following, monitoring for tolerance and adequacy Nutrition reason for involvement: LOS Primary Diagnose(s):R lung PNA PMH: DM2, gastric reflux, COPD, cholecystectomy, hypothyroidism Ht: 69 in Wt: 222 lb BMI: 32.8 kg/m2 IBW: [address] Assessment: (09/13) 68 YOF admitted for recurrent R lung PNA and SOB. Pt seen for LOS. Pt had bronchoscopy yesterday. Pt reports good appetite and po intake currently and COMMUNICATIONS ANALYST, noted 75% po intake today. Pt denies any N/V/C/D. Pt reports UBW of 190#, states she has gained wt recently due to inactivity with having recurrent PNA over the past 2 months. Chart reviewed. Labs and meds noted. Will monitor and continue to follow. Current Diet: Cardiac Malnutrition Evaluation (09/13/18) The patient does not meet criteria for a specified degree of malnutrition at this time. Will re-evaluate at follow-up as appropriate. Diet Education Needs Assessment: Diet education not indicated. Nutrition Care Level: Low Signed: Lisa Escobar RD, LD, [facility]
--- NOTE | 2018-09-13 19:17 | NUR ---
report given to oncoming nurse for continued care.
[2018-09-13 19:38] VITALS: BP 126/60
[2018-09-13] MEDS: RISPERIDONE 1 MG TAB PO SCH (21:05)
[2018-09-14] VITALS (7 sets, daily range): BP systolic 105–124; BP diastolic 52–59
[2018-09-14] MEDS: ALBUTEROL/IPRATROPIUM 3 ML NEB NEB SCH ×3 (03:35→19:30)
[2018-09-14] MEDS: METHYLPREDNISOLONE SOD SUCC 40 MG/ML VIAL 1ML IV SCH (05:41)
[2018-09-14] MEDS: LEVOTHYROXINE SODIUM 75 MCG TAB PO SCH (05:41)
[2018-09-14] MEDS: INSULIN LISPRO 100 UNIT/1 ML 3ML VIAL SQ SCH ×4 (07:30→20:22)
[2018-09-14] MEDS: ALBUTEROL/IPRATROPIUM 3 ML NEB NEB PRN (07:30)
[2018-09-14] MEDS: DOXYCYCLINE HYCLATE TABLET 100 MG TAB PO SCH ×2 (09:16→20:33)
[2018-09-14] MEDS: METHYLPHENIDATE HCL 10 MG TAB PO SCH (09:19)
[2018-09-14] MEDS: PANTOPRAZOLE SOD 40 MG TABEC PO SCH (09:19)
[2018-09-14] MEDS: METFORMIN HCL 500 MG TAB PO SCH ×2 (09:19→17:13)
[2018-09-14] MEDS: RISPERIDONE 0.5 MG TAB PO SCH (09:20)
[2018-09-14] MEDS: BUPROPION HCL 100 MG TAB PO SCH (09:20)
[2018-09-14] MEDS: DULOXETINE HCL 30 MG DELAYED RELEASE PO SCH (09:20)
[2018-09-14] MEDS: LAMOTRIGINE 100 MG TAB PO SCH ×2 (09:20→20:21)
[2018-09-14] MEDS: GABAPENTIN 300 MG CAP PO SCH ×3 (09:20→20:21)
[2018-09-14] MEDS: HYDROCODONE/APAP 7.5MG-325MG 1 EA TAB PO PRN ×3 (09:20→20:21)
[2018-09-14] MEDS: BUDESONIDE/FORMOTEROL 160/4.5MCG INHALER INH SCH ×2 (09:22→19:30)
[2018-09-14] MEDS ORDERED: AMPICILLIN SOD/SULBACTAM 1.5GM 50 ML IV SCH (09:30)
[2018-09-14] MEDS: DOCUSATE SODIUM 100 MG CAP PO PRN (15:26)
[2018-09-14] MEDS: AMPICILLIN SOD/SULBACTAM 1.5GM 50 ML IV SCH ×2 (17:13→22:01)
--- NOTE | 2018-09-14 19:09 | NUR ---
Patient let me know that her and her daughters have decided on [facility] for placement. Will let CM know.
[2018-09-14] MEDS: RISPERIDONE 1 MG TAB PO SCH (20:21)
[2018-09-15] VITALS (7 sets, daily range): BP systolic 104–112; BP diastolic 52–57
[2018-09-15] MEDS: HYDROCODONE/APAP 7.5MG-325MG 1 EA TAB PO PRN ×2 (00:30→04:24)
[2018-09-15] MEDS: ALBUTEROL/IPRATROPIUM 3 ML NEB NEB SCH ×4 (01:00→19:12)
[2018-09-15] MEDS: AMPICILLIN SOD/SULBACTAM 1.5GM 50 ML IV SCH ×4 (04:23→22:29)
[2018-09-15 04:57] LABS: BASOPHILS % 0.6 % (0.0-1.0); EOSINOPHILS # (AUTO) 0.1 (0.0-0.4); HEMOGLOBIN 10.7 g/dL (12.0-16.0); LYMPHOCYTES # (AUTO) 2.8 (1.0-3.2); MEAN CORPUSCULAR HEMOGLOBIN 30.1 pg (28-32); MEAN CORPUSCULAR HGB CONC 30.6 g/dL (31-35); MONOCYTES # (AUTO) 0.6 (0.2-0.8); MONOCYTES % 8.3 % (4.4-11.3); NEUTROPHILS # (AUTO) 3.4 (2.1-6.9); NEUTROPHILS % 48.5 % (38.7-80.0); PLATELET COUNT 346 x10e3/uL (140-360); RED BLOOD COUNT 3.55 x10e6/uL (3.6-5.1); RED CELL DISTRIBUTION WIDTH 12.9 % (11.7-14.4)
[2018-09-15 05:06] LABS: MEAN CORPUSCULAR VOLUME 98.6 fL (81-99)
[2018-09-15 05:12] LABS: ANION GAP 16.5 mmol/L (8-16); BLOOD UREA NITROGEN 24 mg/dL (7-26); BUN/CREATININE RATIO 34 (6-25); CALCIUM 9.2 mg/dL (8.4-10.2); CARBON DIOXIDE 28 mmol/L (22-29); CHLORIDE 102 mmol/L (98-107); CREATININE, SERUM 0.71 mg/dL (0.57-1.11); EST GLOMERULAR FILTRATION RATE > 60 ML/MIN (60-); GLUCOSE 99 mg/dL (74-118); POTASSIUM 4.5 mmol/L (3.5-5.1); SODIUM 142 mmol/L (136-145)
[2018-09-15] MEDS: LEVOTHYROXINE SODIUM 75 MCG TAB PO SCH (05:35)
[2018-09-15] MEDS: INSULIN LISPRO 100 UNIT/1 ML 3ML VIAL SQ SCH ×3 (07:30→16:16)
[2018-09-15] MEDS: BUDESONIDE/FORMOTEROL 160/4.5MCG INHALER INH SCH ×2 (07:35→19:28)
[2018-09-15] MEDS: PANTOPRAZOLE SOD 40 MG TABEC PO SCH (07:36)
[2018-09-15] MEDS: METFORMIN HCL 500 MG TAB PO SCH ×2 (07:36→18:01)
--- NOTE | 2018-09-15 08:17 | NUR ---
PT HAS CHOSEN [facility] FAX CLINICALS.
[2018-09-15] MEDS: DULOXETINE HCL 30 MG DELAYED RELEASE PO SCH (09:15)
[2018-09-15] MEDS: DOXYCYCLINE HYCLATE TABLET 100 MG TAB PO SCH ×2 (09:15→20:57)
[2018-09-15] MEDS: PREDNISONE 20 MG TAB PO SCH (09:15)
[2018-09-15] MEDS: RISPERIDONE 0.5 MG TAB PO SCH (09:15)
[2018-09-15] MEDS: BUPROPION HCL 100 MG TAB PO SCH (09:15)
[2018-09-15] MEDS: LAMOTRIGINE 100 MG TAB PO SCH ×2 (09:15→20:56)
[2018-09-15] MEDS: GABAPENTIN 300 MG CAP PO SCH ×3 (09:15→20:56)
--- NOTE | 2018-09-15 11:50 | NUR ---
ST Note: Attempted to see pt for continued dysphagia therapy. Pt reported she did not want to have therapy today. She stated she was very upset that she had been denied going to [facility] and just needed some time alone. Will return later time permitting.
--- NOTE | 2018-09-15 12:40 | NUR ---
PICC team RN, Gideon Sinha here at this time to complete PICC line placement.
--- NOTE | 2018-09-15 12:40 | NUR ---
[facility] CALLED AND DECLINED PT STATING THEY WILL NOT BE ABLE TO BILL AT 100 % DUE TO THE [facility] BUY OUT. SPOKE WITH DAUGHTER SHE STATES TO CHECK WITH [facility].
--- NOTE | 2018-09-15 12:57 | NUR ---
STAT CXR ordered to confirm PICC placement.
--- NOTE | 2018-09-15 13:31 | Diagnostic Imaging Report ---
Examination: Single AP view of the chest. COMPARISON: CT chest without contrast 09/12/2018 INDICATION: PICC placement DISCUSSION: Interval placement of a right upper extremity PICC. The tip projects over the low superior vena cava. Lungs remain well-inflated. Unchanged patchy opacities in the right mid and lower lungs. No new consolidation. Small right pleural effusion described on the comparison CT is poorly visualized by plain radiography. Stable cardiomediastinal contour with tortuosity and atherosclerotic calcification of the thoracic aorta. No osseous destructive lesions. IMPRESSION: Tip of right upper extremity PICC projects over the low superior vena cava. Signed by: Dr. Gabriel Love M.D. on 09/15/2018 1:27 PM
--- NOTE | 2018-09-15 20:20 | NUR ---
RECEIVED PT IN BED AOX3 .RESPIRATIONS ARE EVEN AND UNLABORED .DENIES PAIN .PT HAS RT UPPER ARM LINE PICC LINE .SKIN WARM AND DRY TO TOUCH .CONTINUE TO MONITOR
[2018-09-15] MEDS: RISPERIDONE 1 MG TAB PO SCH (20:57)
[2018-09-16] VITALS (9 sets, daily range): BP systolic 100–112; BP diastolic 49–56
[2018-09-16] MEDS: ALBUTEROL/IPRATROPIUM 3 ML NEB NEB SCH ×4 (01:20→20:40)
[2018-09-16] MEDS: HYDROCODONE/APAP 7.5MG-325MG 1 EA TAB PO PRN ×4 (03:52→21:16)
[2018-09-16] MEDS: AMPICILLIN SOD/SULBACTAM 1.5GM 50 ML IV SCH (04:02)
[2018-09-16] MEDS: LEVOTHYROXINE SODIUM 75 MCG TAB PO SCH (06:40)
--- NOTE | 2018-09-16 06:41 | NUR ---
PT RESTING .C/O PAIN GIVEN ORDERED PAIN MEDICATION .CALL LIGHT WITH IN REACH .CONTINUE TO MONITOR
[2018-09-16] MEDS: BUDESONIDE/FORMOTEROL 160/4.5MCG INHALER INH SCH ×2 (06:53→20:02)
--- NOTE | 2018-09-16 07:00 | NUR ---
RCD PT AT BED PT IS ALERT AND ORIENTED ASSESSMENT DONE PT RESTING ON BED NO SIGNS OF ANY DISTRESS NOTED IV PATENT BED LOW AND LOCKED CALL LIGHT IN REACH
--- NOTE | 2018-09-16 07:11 | NUR ---
REPORT GIVEN TO THE ONCOMING NURSE.
[2018-09-16] MEDS: INSULIN LISPRO 100 UNIT/1 ML 3ML VIAL SQ SCH ×4 (07:30→20:11)
[2018-09-16] MEDS: PANTOPRAZOLE SOD 40 MG TABEC PO SCH (07:30)
[2018-09-16] MEDS: METFORMIN HCL 500 MG TAB PO SCH ×2 (08:00→17:00)
[2018-09-16] MEDS: LAMOTRIGINE 100 MG TAB PO SCH ×2 (08:35→21:12)
[2018-09-16] MEDS: PREDNISONE 20 MG TAB PO SCH (08:35)
[2018-09-16] MEDS: RISPERIDONE 0.5 MG TAB PO SCH (08:35)
[2018-09-16] MEDS: DULOXETINE HCL 30 MG DELAYED RELEASE PO SCH (08:35)
[2018-09-16] MEDS: GABAPENTIN 300 MG CAP PO SCH ×3 (08:35→21:12)
[2018-09-16] MEDS: BUPROPION HCL 100 MG TAB PO SCH (08:36)
[2018-09-16] MEDS: DOXYCYCLINE HYCLATE TABLET 100 MG TAB PO SCH ×2 (08:36→21:12)
[2018-09-16] MEDS: SENNOSIDES 8.6 MG TAB PO SCH ×2 (09:00→17:00)
[2018-09-16] MEDS: LACTOBACILLUS ACIDOPHILUS CAPSULE PO SCH ×3 (09:00→21:12)
[2018-09-16] MEDS: AMPICILLIN SOD/SULBACTAM 3GM 100 ML IV SCH ×2 (09:29→21:12)
[2018-09-16] MEDS: MAGNESIUM HYDROXIDE 30 ML UDC PO PRN (09:29)
--- NOTE | 2018-09-16 13:20 | NUR ---
[facility] CALLED AND IS NOT IN NETWORK, CALLED INSURANCE CM LEFT MESSAGES TO FIND FACILITIES IN NETWORK. FAMILY WENT TO [facility] AND WOULD LIKE CLINICALS SENT THERE.
--- NOTE | 2018-09-16 16:06 | NUR ---
ALERTED CM DIRECTOR ABOUT [facility] DENIALS FOR SNF REGARDING THIS PT. AND THE DELAY IT CAUSED. [facility] CM TWILA CONTACTED ABOUT IN NETWORK FACILITIES TO WHICH SHE STATES UNABLE TO PROVIDE A CORRECT LIST THEY DO NOT HAVE ONE EITHER.
--- NOTE | 2018-09-16 18:54 | NUR ---
PT RESTING ON BED BED SIDE REPORT GIVEN TO ONCOMING NURSE
[2018-09-16] MEDS: RISPERIDONE 1 MG TAB PO SCH (21:12)
[2018-09-17] VITALS (8 sets, daily range): BP systolic 98–139; BP diastolic 51–66
[2018-09-17] MEDS: ALBUTEROL/IPRATROPIUM 3 ML NEB NEB SCH ×4 (01:40→20:08)
[2018-09-17] MEDS: LEVOTHYROXINE SODIUM 75 MCG TAB PO SCH (05:52)
--- NOTE | 2018-09-17 06:50 | NUR ---
rounded with shift boss nurse, patient resting in bed and in no distress. Call alegria within reach and bed in lowest position.
[2018-09-17] MEDS: BUDESONIDE/FORMOTEROL 160/4.5MCG INHALER INH SCH ×2 (07:28→20:08)
[2018-09-17] MEDS: DOXYCYCLINE HYCLATE TABLET 100 MG TAB PO SCH ×2 (08:30→20:59)
[2018-09-17] MEDS: LAMOTRIGINE 100 MG TAB PO SCH ×2 (08:30→20:59)
[2018-09-17] MEDS: BUPROPION HCL 100 MG TAB PO SCH (08:30)
[2018-09-17] MEDS: PANTOPRAZOLE SOD 40 MG TABEC PO SCH (08:30)
[2018-09-17] MEDS: LACTOBACILLUS ACIDOPHILUS CAPSULE PO SCH ×3 (08:30→20:59)
[2018-09-17] MEDS: METFORMIN HCL 500 MG TAB PO SCH ×2 (08:30→17:22)
[2018-09-17] MEDS: SENNOSIDES 8.6 MG TAB PO SCH ×2 (08:30→17:22)
[2018-09-17] MEDS: INSULIN LISPRO 100 UNIT/1 ML 3ML VIAL SQ SCH ×4 (08:30→20:59)
[2018-09-17] MEDS: GABAPENTIN 300 MG CAP PO SCH ×3 (08:30→20:59)
[2018-09-17] MEDS: DULOXETINE HCL 30 MG DELAYED RELEASE PO SCH (08:30)
[2018-09-17] MEDS: RISPERIDONE 0.5 MG TAB PO SCH (08:30)
[2018-09-17] MEDS: PREDNISONE 20 MG TAB PO SCH (08:30)
[2018-09-17] MEDS: HYDROCODONE/APAP 7.5MG-325MG 1 EA TAB PO PRN ×4 (08:50→22:15)
[2018-09-17] MEDS: AMPICILLIN SOD/SULBACTAM 3GM 100 ML IV SCH ×2 (10:53→22:10)
--- NOTE | 2018-09-17 19:20 | NUR ---
rounded with shift superintendent nurse, patient aware of change and in no distress. Call alegria within reach and bed in lowest position.
[2018-09-17] MEDS: RISPERIDONE 1 MG TAB PO SCH (20:59)
[2018-09-18] VITALS (7 sets, daily range): BP systolic 93–102; BP diastolic 48–57
[2018-09-18] MEDS: ALBUTEROL/IPRATROPIUM 3 ML NEB NEB SCH ×4 (01:00→19:28)
[2018-09-18] MEDS: LEVOTHYROXINE SODIUM 75 MCG TAB PO SCH (05:55)
[2018-09-18] MEDS: BUDESONIDE/FORMOTEROL 160/4.5MCG INHALER INH SCH ×2 (07:20→19:28)
[2018-09-18] MEDS: PANTOPRAZOLE SOD 40 MG TABEC PO SCH (07:30)
[2018-09-18] MEDS: INSULIN LISPRO 100 UNIT/1 ML 3ML VIAL SQ SCH ×4 (07:30→20:54)
[2018-09-18] MEDS: METFORMIN HCL 500 MG TAB PO SCH ×2 (08:00→17:00)
[2018-09-18] MEDS: HYDROCODONE/APAP 7.5MG-325MG 1 EA TAB PO PRN ×4 (08:30→21:48)
[2018-09-18] MEDS: MAGNESIUM HYDROXIDE 30 ML UDC PO PRN ×2 (08:30→16:35)
[2018-09-18] MEDS: RISPERIDONE 0.5 MG TAB PO SCH (09:00)
[2018-09-18] MEDS: DOXYCYCLINE HYCLATE TABLET 100 MG TAB PO SCH ×2 (09:00→21:42)
[2018-09-18] MEDS: PREDNISONE 20 MG TAB PO SCH (09:00)
[2018-09-18] MEDS: SENNOSIDES 8.6 MG TAB PO SCH ×2 (09:00→17:00)
[2018-09-18] MEDS: LACTOBACILLUS ACIDOPHILUS CAPSULE PO SCH ×3 (09:00→21:42)
[2018-09-18] MEDS: DULOXETINE HCL 30 MG DELAYED RELEASE PO SCH (09:00)
[2018-09-18] MEDS: BUPROPION HCL 100 MG TAB PO SCH (09:00)
[2018-09-18] MEDS: LAMOTRIGINE 100 MG TAB PO SCH ×2 (09:00→21:42)
[2018-09-18] MEDS: GABAPENTIN 300 MG CAP PO SCH ×3 (09:00→21:42)
[2018-09-18] MEDS: AMPICILLIN SOD/SULBACTAM 3GM 100 ML IV SCH ×2 (10:00→21:42)
--- NOTE | 2018-09-18 19:11 | NUR ---
PT RESTING ON BED BED SIDE REPORT GIVEN TO ONCOMING NURSE
[2018-09-18] MEDS: RISPERIDONE 1 MG TAB PO SCH (21:42)
[2018-09-19] VITALS (8 sets, daily range): BP systolic 91–112; BP diastolic 43–56
[2018-09-19 05:00] LABS: BASOPHILS % 0.4 % (0.0-1.0); EOSINOPHILS # (AUTO) 0.1 (0.0-0.4); EOSINOPHILS % 1.3 % (0.0-6.0); HEMATOCRIT 34.1 % (34.2-44.1); HEMOGLOBIN 10.6 g/dL (12.0-16.0); LYMPHOCYTES # (AUTO) 2.9 (1.0-3.2); LYMPHOCYTES % 31.7 % (18.0-39.1); MEAN CORPUSCULAR HEMOGLOBIN 30.3 pg (28-32); MEAN CORPUSCULAR HGB CONC 31.1 g/dL (31-35); MEAN CORPUSCULAR VOLUME 97.4 fL (81-99); MONOCYTES # (AUTO) 0.7 (0.2-0.8); MONOCYTES % 7.9 % (4.4-11.3); NEUTROPHILS # (AUTO) 5.3 (2.1-6.9); NEUTROPHILS % 57.7 % (38.7-80.0); PLATELET COUNT 355 x10e3/uL (140-360); RED CELL DISTRIBUTION WIDTH 12.7 % (11.7-14.4)
[2018-09-19] MEDS: LEVOTHYROXINE SODIUM 75 MCG TAB PO SCH (05:18)
[2018-09-19 05:43] LABS: BLOOD UREA NITROGEN 17 mg/dL (7-26); BUN/CREATININE RATIO 24 (6-25); CALCIUM 8.7 mg/dL (8.4-10.2); CARBON DIOXIDE 27 mmol/L (22-29); CHLORIDE 103 mmol/L (98-107); CREATININE, SERUM 0.72 mg/dL (0.57-1.11); EST GLOMERULAR FILTRATION RATE > 60 ML/MIN (60-); GLUCOSE 96 mg/dL (74-118); SODIUM 140 mmol/L (136-145)
[2018-09-19] MEDS: BUDESONIDE/FORMOTEROL 160/4.5MCG INHALER INH SCH ×2 (07:00→20:02)
[2018-09-19] MEDS: ALBUTEROL/IPRATROPIUM 3 ML NEB NEB SCH ×4 (07:00→20:02)
[2018-09-19] MEDS: INSULIN LISPRO 100 UNIT/1 ML 3ML VIAL SQ SCH ×4 (07:30→21:00)
[2018-09-19] MEDS: PANTOPRAZOLE SOD 40 MG TABEC PO SCH (07:30)
[2018-09-19] MEDS: METFORMIN HCL 500 MG TAB PO SCH ×2 (08:00→16:19)
--- NOTE | 2018-09-19 08:00 | NUR ---
The pt. is worried about being discharged and was advised the case management is working on getting her a placement. She expresses the desire to not return home as yet due to a recent hospitalization from which she feels she was not fully recovered. The pt. was reassured that snf placement is in process.
[2018-09-19] MEDS: BUPROPION HCL 100 MG TAB PO SCH (09:11)
[2018-09-19] MEDS: LAMOTRIGINE 100 MG TAB PO SCH ×2 (09:11→21:19)
[2018-09-19] MEDS: DOXYCYCLINE HYCLATE TABLET 100 MG TAB PO SCH ×2 (09:11→21:19)
[2018-09-19] MEDS: SENNOSIDES 8.6 MG TAB PO SCH ×2 (09:11→16:19)
[2018-09-19] MEDS: LACTOBACILLUS ACIDOPHILUS CAPSULE PO SCH ×3 (09:11→21:19)
[2018-09-19] MEDS: RISPERIDONE 0.5 MG TAB PO SCH (09:11)
[2018-09-19] MEDS: DULOXETINE HCL 30 MG DELAYED RELEASE PO SCH (09:11)
[2018-09-19] MEDS: GABAPENTIN 300 MG CAP PO SCH ×3 (09:11→21:19)
[2018-09-19] MEDS: PREDNISONE 20 MG TAB PO SCH (09:11)
[2018-09-19] MEDS: AMPICILLIN SOD/SULBACTAM 3GM 100 ML IV SCH ×2 (09:46→20:45)
[2018-09-19] MEDS: HYDROCODONE/APAP 7.5MG-325MG 1 EA TAB PO PRN (10:06)
--- NOTE | 2018-09-19 15:09 | NUR ---
The pt. requested pain med and med has fallen off the med pass. A call was placed to Dr. Thomas for order and notified that the pt was denied for SNF.
--- NOTE | 2018-09-19 15:43 | NUR ---
[facility] was informed by ROBB Hale that pt has been denied for SNF. CAPRI left message for Dr. Thomas regarding home with IV abx and home health vs PO abx. ANGIE Rajput also left message for Dr. Thomas. Awaiting response.
--- NOTE | 2018-09-19 16:06 | NUR ---
PT DENIED FOR SNF, WALKING OVER 250 FT FOR THERAPY AND INSURANCE STATES IV CAN BE DONE AT HOME. TOLD DAUGHTER OF PT AND ALERTED CM. WAITING ON PHYSICIAN TO DETERMINE IF PT WILL NEED HOME HEALTH FOR IV OR TO GO HOME ON PO.
--- NOTE | 2018-09-19 16:29 | NUR ---
Second call to for pain med renewal.
--- NOTE | 2018-09-19 19:32 | NUR ---
Patient received sitting up in bed. AAO x 4. Patient had no complaints of pain. No respiratory distress noted. Bed locked and in lowest position. Bed rails up x 2. Patient instructed to call for assistance when needed. Call light within reach.
--- NOTE | 2018-09-19 20:43 | NUR ---
Patient complained of back pain. Dr Thomas notified. Order received to resume [place] 7.5/325 mg Q4.
[2018-09-19] MEDS ORDERED: HYDROCODONE/APAP 7.5MG-325MG 1 EA TAB PO PRN (20:45)
[2018-09-19] MEDS: RISPERIDONE 1 MG TAB PO SCH (21:19)
[2018-09-19] MEDS ORDERED: SODIUM CHLORIDE 0.9% 250ML 250 ML ONE (21:29)
[2018-09-20] VITALS (8 sets, daily range): BP systolic 93–136; BP diastolic 53–65
[2018-09-20] MEDS: ALBUTEROL/IPRATROPIUM 3 ML NEB NEB SCH ×3 (01:20→13:41)
[2018-09-20] MEDS: LEVOTHYROXINE SODIUM 75 MCG TAB PO SCH (06:20)
--- NOTE | 2018-09-20 07:00 | NUR ---
The pt is in bed awake and position on the her left side and denies issues or concerns at this time. She reports that it is a possibility that she may be going home with home health today.
[2018-09-20] MEDS: INSULIN LISPRO 100 UNIT/1 ML 3ML VIAL SQ SCH ×3 (07:30→16:30)
[2018-09-20] MEDS: SENNOSIDES 8.6 MG TAB PO SCH ×2 (08:24→16:33)
[2018-09-20] MEDS: LACTOBACILLUS ACIDOPHILUS CAPSULE PO SCH ×2 (08:24→15:17)
[2018-09-20] MEDS: DULOXETINE HCL 30 MG DELAYED RELEASE PO SCH (08:24)
[2018-09-20] MEDS: PANTOPRAZOLE SOD 40 MG TABEC PO SCH (08:24)
[2018-09-20] MEDS: DOXYCYCLINE HYCLATE TABLET 100 MG TAB PO SCH (08:24)
[2018-09-20] MEDS: LAMOTRIGINE 100 MG TAB PO SCH (08:24)
[2018-09-20] MEDS: METFORMIN HCL 500 MG TAB PO SCH ×2 (08:24→16:33)
[2018-09-20] MEDS: PREDNISONE 20 MG TAB PO SCH (08:24)
[2018-09-20] MEDS: BUDESONIDE/FORMOTEROL 160/4.5MCG INHALER INH SCH (08:24)
[2018-09-20] MEDS: GABAPENTIN 300 MG CAP PO SCH ×2 (08:24→15:17)
[2018-09-20] MEDS: RISPERIDONE 0.5 MG TAB PO SCH (08:24)
[2018-09-20] MEDS: BUPROPION HCL 100 MG TAB PO SCH (08:24)
[2018-09-20] MEDS: AMPICILLIN SOD/SULBACTAM 3GM 100 ML IV SCH (09:40)
--- NOTE | 2018-09-20 10:45 | NUR ---
The pt. called to report that she is having severe pain. This securities underwriter went down to check the pt. and she reports severe chest pain with radiation to the left arm. Vital sighs initiated and rapid response called due to change in status. Temp 98 BP133/64 o2 sat 95%. Pain 9/10 and more severe in the epigastric region when pressed upon. EKG done and Dr. Sanchez reported no change since admission. The pt's color is pale and warm. A call was sent out to office and cell phone and a message was left on voicemail.
--- NOTE | 2018-09-20 11:47 | NUR ---
I spoke with Dr. Thomas and received order for Maalox and to have the pt. eat lunch and if tolerated send her home this afternoon.
[2018-09-20] MEDS ORDERED: MAGNESIUM/ALUMINUM/SIMETHICONE 30 ML UDC PO ONE (12:00)
--- NOTE | 2018-09-20 15:18 | NUR ---
The pt's PICC line has been discontinued and the pt. is waiting for transport.
--- NOTE | 2018-09-20 16:40 | NUR ---
IMM LETTER EXPLAINED TO PT. PT VERBALIZED UNDERSTANDING. LETTER WAS SIGNED BY PT. COPY TO CHART AND COPY TO PT.
--- NOTE | 2018-09-20 18:24 | NUR ---
The pt. was discharged home in stable condition post receiving home care and follow up instructions. The daughter requested documentation that the pt. received a dose of toradol during this adm so that when the pt. goes to pain she will have that info for the drug testing. The pt was escorted to private car and placed into the care of her daughter. The PICC line was removed and pressure dressing
== END 2018-09-20 18:39 | disposition home or self-care (01) | DRG 177 ==
LOC: ER 14:08 → ERHOLD 16:56 → IMCU 18:45 → OBSVTOIN 09-07 08:55 → MED/SURG2 09-07 10:43
PROVIDERS: ADMIT Internal Medicine; ATTEND Internal Medicine
PROC: 0B9F8ZX Drainage of Right Lower Lung Lobe, Via Natural or Artificial Opening Endoscopic, Diagnostic (ICD-10-PCS; principal; 2018-09-09 10:00)
PROC: 0BD68ZX Extraction of Right Lower Lobe Bronchus, Via Natural or Artificial Opening Endoscopic, Diagnostic (ICD-10-PCS; 2018-09-09 10:00)
PROC: 02HV33Z Insertion of Infusion Device into Superior Vena Cava, Percutaneous Approach (ICD-10-PCS; 2018-09-15)
DX: J15.0 Pneumonia due to Klebsiella pneumoniae (principal); J96.91 Respiratory failure, unspecified with hypoxia; J44.0 Chronic obstructive pulmonary disease with (acute) lower respiratory infection; J44.1 Chronic obstructive pulmonary disease with (acute) exacerbation; R07.81 Pleurodynia; G47.33 Obstructive sleep apnea (adult) (pediatric); I10 Essential (primary) hypertension; E03.9 Hypothyroidism, unspecified; F31.9 Bipolar disorder, unspecified; E11.9 Type 2 diabetes mellitus without complications; Z87.01 Personal history of pneumonia (recurrent); Z87.891 Personal history of nicotine dependence; Z79.4 Long term (current) use of insulin
CPT/HCPCS: 31623; 36415; 36569; 71045; 71046; 71250; 74230; 76000; 80048; 81001; 82550; 82553; 82948; 84484; 85025; 87040; 87070; 87102; 87109; 87116; 87186; 87205; 87206; 87335; 88305; 93005; 94640; 94664; 97139; 99284; G0378; J0171; J0295; J0461; J1100; J1885; J1940; J2001; J2250; J2405; J2920; J3370; J7050; J7512

== ENCOUNTER → 2019-03-31 | Outpatient (CLI) | payer MEDICARE ==
[~2019-03-31] MED LIST changes: +ALBUTEROL/ATROVENT; +CITRICAL; +CYMBALTA30 MG; +XOPENEX HFA15 GM INH
--- NOTE | 2019-03-31 14:59 | Diagnostic Imaging Report ---
EXAM: CT Chest WITHOUT contrast 03/31/2019 INDICATION: History of pneumonia COMPARISON: 09/12/2018 TECHNIQUE: Chest was scanned utilizing a multidetector helical scanner from the lung apex through the level of the adrenal glands without administration of IV contrast. Absence of intravenous contrast decreases sensitivity for detection of lymphadenopathy and vascular pathology. Coronal and sagittal reformations were obtained. Routine protocol was performed. IV CONTRAST: None RADIATION DOSE: Total DLP: 575.04 mGy*cm Estimated effective dose: (DLP x 0.014 x size factor) mSv All CT scans are performed using radiation dose reduction techniques. Technical factors are evaluated and adjusted to ensure appropriate moderation of exposure. Automated dose management technology is applied to adjust the radiation dose to minimize exposure while achieving a diagnostic-quality image. COMPLICATIONS: None DISCUSSION: ABSENCE OF INTRAVENOUS CONTRAST DECREASES SENSITIVITY FOR DETECTION OF FOCAL LESIONS AND VASCULAR PATHOLOGY. LINES/TUBES: None. LUNGS AND AIRWAYS: There has been interval resolution of the previously described right lower lobe consolidation. No new focal consolidation is identified. There are scattered areas of linear atelectasis or scarring. No pulmonary mass is identified. PLEURA: No pneumothorax or pleural effusion. HEART AND MEDIASTINUM: The thyroid gland is normal. The heart is within normal limits size LYMPH NODES: No enlarged mediastinal lymph nodes are identified. ABDOMEN: No focal hepatic lesions are identified in the visualized portions of the liver. The bilateral adrenal glands are normal. The pancreatic duct is not dilated. The spleen demonstrates scattered calcified granulomas. BONES AND SOFT TISSUES: No acute bony abnormalities. IMPRESSION: Resolution of the previously described right lung consolidation. No new consolidation is identified. Signed by: Marty Enrique MD on 03/31/2019 2:56 PM
== END ==
LOC: CT 13:46
PROVIDERS: ATTEND Internal Medicine
DX: Z87.01 Personal history of pneumonia (recurrent) (principal)
CPT/HCPCS: 71250

== ENCOUNTER 2021-08-02 17:07 | Emergency (ER) | payer MEDICARE ==
[~2021-08-02] VITALS: Ht 175.3 cm; Wt 79.4 kg
[2021-08-02] MEDS ORDERED: ESTRADIOL1 MG PO (17:52)
[2021-08-02] MEDS ORDERED: DIAZEPAM5 MG PV (17:52)
[2021-08-02] MEDS ORDERED: HYDROCORTISONE28 GM (17:52)
[2021-08-02] MEDS ORDERED: METHADONE HCL5 MG PO (17:52)
[2021-08-02] MEDS ORDERED: VALACYCLOVIR500 MG PO (17:52)
[2021-08-02] MEDS ORDERED: MOVANTIK25 MG (17:52)
[2021-08-02] MEDS ORDERED: CLOBETASOL PROP15 G1 TOP (17:52)
[2021-08-02] MEDS ORDERED: NALOXONE H0.4 MG/1 M IM (17:52)
[2021-08-02] MEDS ORDERED: SODIUM CHLORIDE 0.9% 1000ML 1,000 ML ONE (19:53)
[2021-08-02] MEDS ORDERED: ACETAMINOPHEN 325 MG TAB PO ONE (20:30)
[2021-08-02] MEDS ORDERED: ACETAMINOPHEN 325 MG TAB ONE (20:38)
[2021-08-02] MEDS ORDERED: CEFTRIAXONE 1 GM in SODIUM CHLORIDE 0.9% 50ML 50 ML IV ONE (21:15)
[2021-08-02] MEDS ORDERED: CEFDINIR300 MG PO (21:30)
== END 2021-08-02 23:02 | disposition home or self-care (01) ==
LOC: FSED 17:10
DX: J18.9 Pneumonia, unspecified organism (principal); J44.9 Chronic obstructive pulmonary disease, unspecified; E11.9 Type 2 diabetes mellitus without complications; E03.9 Hypothyroidism, unspecified; F31.9 Bipolar disorder, unspecified; M54.9 Dorsalgia, unspecified; G89.29 Other chronic pain; G40.909 Epilepsy, unspecified, not intractable, without status epilepticus; Z20.822 Contact with and (suspected) exposure to COVID-19; R94.31 Abnormal electrocardiogram [ECG] [EKG]
CPT/HCPCS: 70450; 71250; 80053; 81003; 82553; 83880; 84484; 85025; 93005; 99284; J7030; U0002

== ENCOUNTER 2024-05-28 17:38 | Inpatient (IN) | payer MEDICARE ==
[~2024-05-28] VITALS: Ht 175.3 cm; Wt 98.0 kg
[~2024-05-28 17:38] MED LIST changes: +CLOBETASOL PROP15 G1 TOP; +DIAZEPAM5 MG PV; +ESTRADIOL1 MG PO; +HYDROCORTISONE28 GM; +METHADONE HCL5 MG PO; +MOVANTIK25 MG; +NALOXONE H0.4 MG/1 M IM; +VALACYCLOVIR500 MG PO
[2024-05-28 18:10] LABS: BASOPHILS % 0.8 % (0.0-1.0); EOSINOPHILS # (AUTO) 0.2 (0.0-0.4); EOSINOPHILS % 3.4 % (0.0-6.0); HEMATOCRIT 37.7 % (34.2-44.1); HEMOGLOBIN 10.9 g/dL (12.0-16.0); LYMPHOCYTES # (AUTO) 1.7 (1.0-3.2); LYMPHOCYTES % 34.4 % (18.0-39.1); MEAN CORPUSCULAR HEMOGLOBIN 27.2 pg (28-32); MEAN CORPUSCULAR HGB CONC 28.9 g/dL (31-35); MONOCYTES # (AUTO) 0.6 (0.2-0.8); MONOCYTES % 11.9 % (4.4-11.3); NEUTROPHILS # (AUTO) 2.5 (2.1-6.9); NEUTROPHILS % 49.3 % (38.7-80.0); PLATELET COUNT 232 x10e3/uL (140-360); RED BLOOD COUNT 4.01 x10e6/uL (3.6-5.1); RED CELL DISTRIBUTION WIDTH 15.5 % (11.7-14.4); WHITE BLOOD COUNT 4.97 x10e3/uL (4.8-10.8)
[2024-05-28] MEDS: SODIUM CHLORIDE 0.9% 500ML 500 ML IV ONE (18:14)
[2024-05-28] MEDS: ASPIRIN 81 MG CHEW TAB PO ONE (18:17)
[2024-05-28] MEDS: METHYLPREDNISOLONE SOD SUCC 125 MG/2ML VIAL IV STA (18:19)
[2024-05-28 18:20] LABS: INR 0.85
[2024-05-28 18:21] LABS: PARTIAL THROMBOPLASTIN TIME 28.1 seconds (23.8-35.5)
[2024-05-28 18:24] VITALS: PULSE 71; RESP 16; TEMP 98.3
[2024-05-28 18:30] LABS: ALANINE AMINOTRANSFERASE 18 IU/L (0-55); ALBUMIN 3.7 g/dL (3.5-5.0); ALBUMIN/GLOBULIN RATIO 1.3 (0.8-2.0); ALKALINE PHOSPHATASE 90 IU/L (40-150); ANION GAP 13.9 mmol/L (8-16); BILIRUBIN,TOTAL 0.3 mg/dL (0.2-1.2); BLOOD UREA NITROGEN 11 mg/dL (7-26); BUN/CREATININE RATIO 11 (6-25); CALCIUM 8.6 mg/dL (8.4-10.2); CARBON DIOXIDE 27 mmol/L (22-29); CHLORIDE 107 mmol/L (98-107); CREATINE KINASE 85 IU/L (29-168); CREATININE, SERUM 0.97 mg/dL (0.57-1.11); EST GLOMERULAR FILTRATION RATE 62 ML/MIN (>=60); GLUCOSE 154 mg/dL (74-118); MAGNESIUM 1.9 MG/DL (1.3-2.1); POTASSIUM 3.9 mmol/L (3.5-5.1); SODIUM 144 mmol/L (136-145); TOTAL PROTEIN 6.6 g/dL (6.5-8.1)
[2024-05-28 18:31] VITALS: PULSE 72; RESP 18; O2SAT 94
[2024-05-28] MEDS: ALBUTEROL/IPRATROPIUM 3 ML NEB NEB ONE (18:34)
[2024-05-28 18:37] LABS: TROPONIN I < 0.001 ng/mL (0-0.300)
[2024-05-28] MEDS ORDERED: ACETAMINOPHEN 325 MG TAB PO PRN (19:00)
[2024-05-28] MEDS ORDERED: ONDANSETRON HCL INJ 2MG/ML 2ML 2 MG/ML VIAL IV PRN (19:15)
[2024-05-28] MEDS ORDERED: DEXTROSE 50% SYRINGE 50 ML IV PRN (19:15)
[2024-05-28] MEDS: ALBUTEROL SULF 0.083% NEB SOLN 3 ML NEB NEB SCH (19:15)
[2024-05-28 19:31] LABS: INFLUENZAE A&B ANTIGEN (RAPID) NEGATIVE (NEGATIVE)
[2024-05-28 19:32] LABS: RESPIRATORY SYNC. VIRUS NEGATIVE (NEGATIVE)
[2024-05-28 20:00] VITALS: BP 125/60; PULSE 68; RESP 18; TEMP 98.3; O2SAT 97
[2024-05-28] MEDS: INSULIN REGULAR, HUMAN 100 UNIT/1 ML SQ SCH (20:56)
[2024-05-28 22:00] VITALS: BP 125/60; PULSE 68; RESP 18; TEMP 98.3; O2SAT 97
[2024-05-28] MEDS: SODIUM CHLORIDE 0.9% 1000ML 1,000 ML IV ONE (22:40)
[2024-05-28 23:12] VITALS: PULSE 70; RESP 18; O2SAT 96
[2024-05-28] MEDS: IPRATROPIUM BROMIDE 0.02% 2.5 ML NEB NEB SCH (23:16)
[2024-05-29] VITALS (12 sets, daily range): BP systolic 101–131; BP diastolic 58–62; PULSE 64–76; RESP 17–18; TEMP 97.4–99.3; O2SAT 95–98
[2024-05-29] MEDS ORDERED: VENTOLIN HFA18 GM INH (03:31)
[2024-05-29] MEDS ORDERED: LAMOTRIGINE100 MG PO (03:31)
[2024-05-29 05:31] LABS: BASOPHILS # (AUTO) 0.1 (0.0-0.1); BASOPHILS % 1.2 % (0.0-1.0); EOSINOPHILS # (AUTO) 0.2 (0.0-0.4); EOSINOPHILS % 4.3 % (0.0-6.0); HEMATOCRIT 34.5 % (34.2-44.1); HEMOGLOBIN 9.9 g/dL (12.0-16.0); LYMPHOCYTES # (AUTO) 2.2 (1.0-3.2); LYMPHOCYTES % 42.3 % (18.0-39.1); MEAN CORPUSCULAR HGB CONC 28.7 g/dL (31-35); MEAN CORPUSCULAR VOLUME 94.3 fL (81-99); MONOCYTES # (AUTO) 0.6 (0.2-0.8); MONOCYTES % 12.2 % (4.4-11.3); NEUTROPHILS # (AUTO) 2.1 (2.1-6.9); NEUTROPHILS % 39.8 % (38.7-80.0); PLATELET COUNT 212 x10e3/uL (140-360); RED BLOOD COUNT 3.66 x10e6/uL (3.6-5.1); RED CELL DISTRIBUTION WIDTH 15.5 % (11.7-14.4); WHITE BLOOD COUNT 5.15 x10e3/uL (4.8-10.8)
[2024-05-29 05:50] LABS: ALBUMIN 3.3 g/dL (3.5-5.0); ALBUMIN/GLOBULIN RATIO 1.3 (0.8-2.0); ANION GAP 12.7 mmol/L (8-16); BILIRUBIN,TOTAL 0.3 mg/dL (0.2-1.2); CALCIUM 8.1 mg/dL (8.4-10.2); CREATININE, SERUM 0.84 mg/dL (0.57-1.11); POTASSIUM 3.7 mmol/L (3.5-5.1); TOTAL PROTEIN 5.8 g/dL (6.5-8.1)
[2024-05-29 06:00] LABS: TROPONIN I 0.005 ng/mL (0-0.300)
[2024-05-29 06:52] LABS: TROPONIN I 0.002 ng/mL (0-0.300)
[2024-05-29] MEDS ORDERED: DEXTROSE 50% SYRINGE 50 ML IV PRN (09:00)
[2024-05-29] MEDS ORDERED: ONDANSETRON HCL INJ 2MG/ML 2ML 2 MG/ML VIAL IV PRN (09:00)
[2024-05-29] MEDS ORDERED: ALBUTEROL/IPRATROPIUM 3 ML NEB NEB PRN (09:00)
[2024-05-29] MEDS ORDERED: BENZONATATE 100 MG CAP PO PRN (09:00)
[2024-05-29] MEDS: METHYLPREDNISOLONE SOD SUCC 40 MG/ML VIAL 1ML IV SCH ×2 (09:54→21:26)
[2024-05-29] MEDS: GABAPENTIN 300 MG CAP PO SCH (10:01)
[2024-05-29] MEDS: METHADONE HCL 5 MG TAB PO SCH ×2 (10:02→21:28)
[2024-05-29] MEDS: LEVOTHYROXINE SODIUM 75 MCG TAB PO SCH (10:03)
[2024-05-29] MEDS: LAMOTRIGINE 100 MG TAB PO SCH ×2 (10:03→21:33)
[2024-05-29] MEDS: PANTOPRAZOLE SODIUM 20 MG TABLET.DR PO SCH (10:03)
[2024-05-29] MEDS: RISPERIDONE 0.5 MG TAB PO SCH (10:05)
[2024-05-29] MEDS: ALBUTEROL/IPRATROPIUM 3 ML NEB NEB SCH (10:47)
[2024-05-29 11:10] LABS: % IRON SATURATION 8 % (15-50); IRON 32 ug/dL (50-170); TOTAL IRON BINDING CAPACITY 393 ug/dL (261-478); TRANSFERRIN 281 mg/dL (180-382)
[2024-05-29] MEDS: INSULIN LISPRO 100 UNIT/1 ML 3ML VIAL SQ SCH (11:30)
[2024-05-29] MEDS: ACETAMINOPHEN 325 MG TAB PO PRN (11:48)
[2024-05-29 15:29] LABS: TROPONIN I 0.002 ng/mL (0-0.300)
[2024-05-29] MEDS: ENOXAPARIN SOD INJ 40 MG/0.4 ML SYR SC SCH (17:22)
[2024-05-29 17:41] LABS: CLARITY,URINE CLEAR (CLEAR); COLOR,URINE STRAW (YELLOW); LEUKOCYTE ESTERASE ,URINE NEGATIVE (NEGATIVE); NITRITE,URINE NEGATIVE (NEGATIVE); PH,URINE 7 (5 - 7)
[2024-05-29 17:42] LABS: BILIRUBIN,URINE NEGATIVE (NEGATIVE); GLUCOSE, URINE NEGATIVE (NEGATIVE); KETONES,URINE NEGATIVE (NEGATIVE); PROTEIN,URINE DIPSTICK NEGATIVE (NEGATIVE); URINE UROBILINOGEN 1 mg/dL (0.2 - 1)
[2024-05-29 17:43] LABS: BACTERIA,URINE RARE /HPF; RBC,URINE 0-5 /HPF (0-5); WBC,URINE (MAN) 0-5 /HPF (0-5)
[2024-05-30] VITALS (7 sets, daily range): BP systolic 114–144; BP diastolic 51–62; PULSE 65–97; RESP 16–20; TEMP 97.1–98.4; O2SAT 93–99
[2024-05-30 06:20] LABS: BASOPHILS % 0.4 % (0.0-1.0); EOSINOPHILS % 0.2 % (0.0-6.0); HEMATOCRIT 37.7 % (34.2-44.1); HEMOGLOBIN 10.7 g/dL (12.0-16.0); LYMPHOCYTES # (AUTO) 0.8 (1.0-3.2); LYMPHOCYTES % 15.4 % (18.0-39.1); MEAN CORPUSCULAR HEMOGLOBIN 27.1 pg (28-32); MEAN CORPUSCULAR HGB CONC 28.4 g/dL (31-35); MEAN CORPUSCULAR VOLUME 95.4 fL (81-99); MONOCYTES # (AUTO) 0.3 (0.2-0.8); NEUTROPHILS # (AUTO) 3.9 (2.1-6.9); NEUTROPHILS % 78.4 % (38.7-80.0); PLATELET COUNT 244 x10e3/uL (140-360); RED BLOOD COUNT 3.95 x10e6/uL (3.6-5.1); RED CELL DISTRIBUTION WIDTH 15.4 % (11.7-14.4)
[2024-05-30 07:17] LABS: ANION GAP 15.5 mmol/L (8-16); CALCIUM 9.2 mg/dL (8.4-10.2); CREATININE, SERUM 0.85 mg/dL (0.57-1.11); POTASSIUM 4.5 mmol/L (3.5-5.1)
[2024-05-30] MEDS: METHADONE HCL 5 MG TAB PO SCH (08:16)
[2024-05-30] MEDS: PREDNISONE 20 MG TAB PO SCH (09:50)
[2024-05-30] MEDS ORDERED: METHADONE HCL 5 MG TAB PO SCH (14:00)
== END 2024-05-30 12:30 | disposition home or self-care (01) | DRG 178 ==
LOC: ER 17:43 → ERHOLD 19:11 → MED/SURG2 20:42 → OBSVTOIN 05-29 08:58
PROVIDERS: ADMIT Internal Medicine; ATTEND Internal Medicine
DX: J69.0 Pneumonitis due to inhalation of food and vomit (principal); F11.20 Opioid dependence, uncomplicated; J44.1 Chronic obstructive pulmonary disease with (acute) exacerbation; E11.9 Type 2 diabetes mellitus without complications; E03.9 Hypothyroidism, unspecified; J43.9 Emphysema, unspecified; K21.9 Gastro-esophageal reflux disease without esophagitis; F31.9 Bipolar disorder, unspecified; G89.4 Chronic pain syndrome; M54.50 Low back pain, unspecified; E66.9 Obesity, unspecified; Z68.32 Body mass index [BMI] 32.0-32.9, adult; Z11.52 Encounter for screening for COVID-19; Z79.890 Hormone replacement therapy; Z79.84 Long term (current) use of oral hypoglycemic drugs; Z96.0 Presence of urogenital implants; Z90.49 Acquired absence of other specified parts of digestive tract; Z90.710 Acquired absence of both cervix and uterus; Z88.2 Allergy status to sulfonamides; F17.290 Nicotine dependence, other tobacco product, uncomplicated
CPT/HCPCS: 36415; 71045; 71250; 80048; 80053; 81001; 82550; 82948; 83540; 83735; 83880; 84466; 84484; 85025; 85610; 85730; 87040; 87070; 87086; 87205; 87400; 87420; 93005; 93306; 94640; 94667; 94799; 99284; G0378; J0696; J1650; J2919; J7030; J7040; J7050; J7512; U0002